=== PATIENT | female | born 1950 | race Caucasian/White ===

== ENCOUNTER → 2016-12-20 | Outpatient (CLI) | payer OTHER ==
[~2016-12-20] MED LIST: ALBU1AER9 INH; AMLO5TAB4 PO; ASPI-435 PO; DONE1TAB26 PO; FLUT0.0529 NAE; FLUT0.15 NAE; HYDR12.55 PO; LOSA100T65 PO; METF1000 PO; PRED50TA PO; PREG1CAP28 PO; ZOLP10TA6 PO
== END | disposition home or self-care (01) ==
LOC: C.RDSM 14:37
PROVIDERS: ATTEND Orthopaedic Surgery Sports Medicine
DX: R52 Pain, unspecified (principal)

== ENCOUNTER 2017-04-13 16:41 | Emergency (ER) | payer OTHER ==
[~2017-04-13] VITALS: Ht 175.3 cm; Wt 104.1 kg
[~2017-04-13 16:41] MED LIST changes: -DONE1TAB26 PO; -FLUT0.15 NAE; -PRED50TA PO
[2017-04-13 16:45] VITALS: TEMP 36.8; Ht 175.3 cm; Wt 104.1 kg
[2017-04-13] MEDS ORDERED: PERMETHRIN 5% CR 60 GM TUBE EXT STA (17:14)
--- NOTE | 2017-04-13 17:19 | EMERGENCY ROOM VISIT NOTE ---
History First contact with patient: 16:50 Chief Complaint: RASH Stated Complaint: RASH History of Present Illness The patient is a 67 year old female who presents to the Emergency Room via private vehicle with complaints of "rash". Much of the history was obtained via lance crewmember/mlrs sergeant for Citizen Of [place]. The patient states that 2 days ago, she was gardening, and was around plants and then noticed these red dots on her right leg, left abdominal waistline, right inner thigh. She states that these are very itchy. She notes that began on the legs. She denies any pain. She states that it is now spreading. She is tried Neosporin the provides minimal relief. She also notes that she visited someone's house, and a catch up on her and she is concerned she may have fleas. She denies any fevers, chest pain, shortness of breath, trouble breathing, throat swelling, pain, drainage, close contacts with similar symptoms. She denies any medicinal allergies. She takes medication for high blood pressure and diabetes. There've been no new medications. There've been no new changes in lifestyle. Review of Systems A complete 10-point Review of Systems was discussed with the patient, with pertinent positives and negatives listed in the History of Present Illness. All remaining Review of Systems questions can be considered negative unless otherwise specified. Past Medical/Surgical History Medical Problems: (1) Asthma (2) Depression (3) Diabetes mellitus (4) Hyperlipidemia (5) Hypertension Family History Patient lives at home with family. Social History Smoking Status: Never Smoker Alcohol Use: none Drug Use: none Marital Status: Housing Status: lives with family Occupation Status: disabled Current/Historical Medications Scheduled Amlodipine Besylate (Norvasc), 5 MG PO QAM Aspirin (Aspirin 81), 81 MG PO DAILY Donepezil Hydrochloride (Donepezil Hcl), 10 MG PO DAILY Fluticasone Propionate (Nasal) (Flonase Allergy Relief), 2 SPRAYS PATRICE BID Hydrochlorothiazide (Hydrochlorothiazide), 12.5 MG PO QAM Losartan Potassium (Cozaar), 100 MG PO DAILY Metformin Hcl (Glucophage), 1,000 MG PO BID Prednisone (Prednisone), 50 MG PO DAILY Pregabalin (Lyrica), 75 MG PO HS Scheduled PRN Albuterol (Proair Hfa), 1-2 PUFFS INH Q6 PRN for SOB/Wheezing Zolpidem Tartrate (Zolpidem Tartrate), 1 TAB PO HS PRN for Sleep Allergies Coded Allergies: Procaine (Verified Allergy, Unknown, UNKNOWN, 09/10/16) Physical Exam Vital Signs Date Time Temp Pulse Resp B/P Pulse Ox O2 Delivery O2 Flow Rate FiO2 04/13/17 17:48 66 153/77 95 04/13/17 16:45 36.8 73 18 180/82 97 Room Air Physical Exam VITAL SIGNS - Vital signs and nursing notes were reviewed. Afebrile, hypertensive at 180/82, nontachypneic cardiac and saturating well on room air at 97%. GENERAL -67-year-old female appearing her stated age who is in no acute distress. Communicates well with provider and answers questions appropriately. SKIN - Small raised papules that are erythematous and sub centimeter. HEAD - NC/AT. EYES -Sclera anicteric. Palpebral conjunctiva pink and moist with no injection noted. EARS - No deformities of external structures noted on gross examination bilaterally. NOSE - Midline and without cyanosis. No epistaxis or purulent drainage noted. Septum midline without deviation or septal hematoma noted. MOUTH/OROPHARYNX - Without perioral cyanosis. Buccal mucosa pink and moist and without leukoplakia. EXTREMITIES - No clubbing or peripheral cyanosis. No pretibial edema present. +5 /5 strength noted in UE/LE bilaterally. NEUROLOGIC - Cranial nerves II through XII grossly intact. Sensory intact to light touch throughout. PSYCH - Pt is very pleasant and interacts well with examiner. Medical Decision & Procedures Medications Administered Medications (Trade) Dose Ordered Sig/Leigh Ann Route Start Time Stop Time Status Last Admin Dose Admin Prednisone (PredniSONE TAB) 50 mg NOW STAT PO 04/13/17 17:14 04/13/17 17:16 DC 04/13/17 17:25 50 MG Permethrin (Elimite 5% Crm) 1 appln NOW STAT EXT 04/13/17 17:14 04/13/17 17:16 DC 04/13/17 17:14 1 APPLN Diphenhydramine HCl (Benadryl Cap) 50 mg NOW STAT PO 04/13/17 17:14 04/13/17 17:16 DC 04/13/17 17:25 50 MG Medical Decision Patient was seen and evaluated as above. She presents with a raised, papular- like rash. This is either contact of otitis secondary to recent gardening, scabies or flea bites. Patient does have a potential exposure to a friend's cat , and secondary itchiness could be scabies as well as its distribution however could also be contact dermatitis. The exact etiology at this time is unclear. An lance crewmember/mlrs sergeant was used throughout much of the examination and disposition. It appears that the best treatment for this patient will be Benadryl, prednisone followed by permethrin cream for any potential scabies. She was educated to wear white socks, and try to identify small little flecks than the fleas. She was instructed upon management of fleas. She was instructed upon management of the permethrin cream and scabies. She was also educated this was contact dermatitis. I believe the patient is stable for discharge at this time. She was also seen and evaluated by my attending. Please refer to his independent note regarding the patient's visit. Patient was discharged home in good condition. In evaluation treatment this patient following differential diagnoses entertained: Contact dermatitis, scabies, fleas, SJS, erythema migrans, herpes simplex, hives, among others. Impression Primary Impression: Contact dermatitis Additional Impression: Bites Departure Information Dispostion Home / Self-Care Condition GOOD Prescriptions Prednisone (Prednisone) 50 Mg Tab 50 MG PO DAILY for 4 Days, #4 TAB Prov: Quincy Islas PA-C 04/13/17 Referrals El Hernández M.D. (PCP) Patient Instructions My [facility] Additional Instructions You have been treated in the Emergency Department for irritation of your leg. You have been treated and monitored in the Emergency Department appropriately. The rash could be from a plant in the garden but also could be fleas or scabies. For the rash from a plant the benadryl and prednisone and will help. For fleas, wear white socks and look for small black flecks on your socks. If this is the case then your house needs to be treated for fleas. For scabies, the Permethrin cream will help. Cover body head to toe. Follow instructions. Thoroughly massage cream (30 g for average adult) from head to soles of feet; leave on for 8 to 14 hours before removing (shower or bath); for infants and the elderly, also apply on the hairline, neck, scalp, denominational, and forehead; may repeat if living mites are observed 14 days after first treatment; one application is generally curative. You should take Benadryl (diphenhydramine) 25-50 mg orally every 4-6 hours for the next 5-7 days. This medication is [id number] and you will NOT need a prescription to purchase this at your local pharmacy. You should continue taking the Benadryl for the COMPLETION of the 5-7 days. This is to prevent a rebound allergic reaction in the event that allergens are still present in your system. You have been prescribed Prednisone 50 mg to be taken orally once a day for the next 4 days. This is an anti-inflammatory medicine to be used to help minimize your symptoms. You should take the COMPLETE course of the medication. As with every Emergency Department visit, you should follow-up with your primary care provider in 2-3 days for reevaluation. Return to the Emergency Department if your current symptoms worsen despite treatment course outlined above, or if you develop any of the following symptoms : wheezing, tongue or face swelling, tightness in your throat, shortness of breath, or fainting. Please return to the emergency department with any new/concerning symptoms. Problem Qualifiers
[2017-04-13] MEDS ORDERED: PRED50TA PO (17:20)
[2017-04-13] MEDS ORDERED: DONE1TAB26 PO (17:36)
[2017-04-13] MEDS ORDERED: FLUT0.15 NAE (17:36)
[2017-04-13 17:48] VITALS: BP 153/77; PULSE 66; O2SAT 95
== END 2017-04-13 17:50 | disposition home or self-care (01) ==
LOC: C.EDB 16:42 → C.EDD 17:50
DX: L25.9 Unspecified contact dermatitis, unspecified cause (principal); W57.XXXA Bitten or stung by nonvenomous insect and other nonvenomous arthropods, initial encounter; J45.909 Unspecified asthma, uncomplicated; E11.9 Type 2 diabetes mellitus without complications; I10 Essential (primary) hypertension; Z79.82 Long term (current) use of aspirin; Z79.84 Long term (current) use of oral hypoglycemic drugs; Z79.899 Other long term (current) drug therapy

== ENCOUNTER → 2017-06-06 | Outpatient (CLI) | payer OTHER ==
[~2017-06-06] MED LIST changes: +DONE1TAB26 PO; -FLUT0.0529 NAE; +FLUT0.15 NAE
[2017-06-06 10:26] LABS: ESTIMATED AVERAGE GLUCOSE 146 mg/dl; HA1C FLAG Normal (Normal)
[2017-06-06 10:39] LABS: ALT/SGPT 23 U/L (12-78); AST/SGOT 13 U/L (15-37); BLOOD UREA NITROGEN 22 mg/dl (7-18); BUN/CREATININE RATIO 36.5 (10-20); CALCIUM 9.4 mg/dl (8.5-10.1); CARBON DIOXIDE 28 mmol/L (21-32); CHLORIDE 108 mmol/L (98-107); GLUCOSE 125 mg/dl (70-99); POTASSIUM 4.2 mmol/L (3.5-5.1); SODIUM 142 mmol/L (136-145)
[2017-06-06 10:50] LABS: CHOLESTEROL 164 mg/dl (0-200); CHOLESTEROL/HDL RATIO 3.8; HDL CHOLESTEROL 43 mg/dl; LDL CHOLESTEROL CALCULATED 101 mg/dl; TRIGLYCERIDES 99 mg/dl (0-150); VERY LOW DENSITY LIPOPROT CALC 20 mg/dl
== END | disposition home or self-care (01) ==
LOC: C.LAB1850 09:26
PROVIDERS: ATTEND Internal Medicine
DX: E03.9 Hypothyroidism, unspecified (principal); E11.9 Type 2 diabetes mellitus without complications; G62.9 Polyneuropathy, unspecified; E11.42 Type 2 diabetes mellitus with diabetic polyneuropathy

== ENCOUNTER → 2017-10-06 | Outpatient (CLI) | payer OTHER ==
[2017-10-06 16:47] LABS: BLOOD UREA NITROGEN 17 mg/dl (7-18); BUN/CREATININE RATIO 23.1 (10-20); CARBON DIOXIDE 25 mmol/L (21-32); CHLORIDE 107 mmol/L (98-107); CREATININE 0.71 mg/dl (0.60-1.20); GLUCOSE 97 mg/dl (70-99); SODIUM 142 mmol/L (136-145)
[2017-10-06 16:49] LABS: CREATININE RANDOM URINE 60.2 mg/dl
[2017-10-07 06:11] LABS: ESTIMATED AVERAGE GLUCOSE 143 mg/dl; HA1C FLAG Normal (Normal)
== END | disposition home or self-care (01) ==
LOC: C.LAB1850 14:43
PROVIDERS: ATTEND Internal Medicine
DX: E03.9 Hypothyroidism, unspecified (principal); E11.9 Type 2 diabetes mellitus without complications

== ENCOUNTER → 2017-12-25 | Outpatient (CLI) | payer OTHER | END | disposition home or self-care (01) | LOC: C.RDSM 08:00 | PROVIDERS: ATTEND Orthopaedic Surgery Sports Medicine | DX: M17.0 Bilateral primary osteoarthritis of knee (principal) ==

== ENCOUNTER 2018-02-24 13:02 | Emergency (ER) | payer OTHER ==
[~2018-02-24] VITALS: Ht 165.1 cm; Wt 104.9 kg
[2018-02-24 13:05] VITALS: TEMP 36.8
[2018-02-24 14:39] VITALS: O2SAT 96
[2018-02-24 14:48] LABS: BASO % 0.4 %; BASO ABS # 0.03 K/uL (0-0.2); EOS % 1.9 %; EOS ABS # 0.14 K/uL (0-0.5); HEMATOCRIT 41.4 % (37-47); HEMOGLOBIN 13.6 g/dL (12.0-16.0); IG# 0.01 K/uL (0.00-0.02); LYMPH % 37.9 %; LYMPH ABS # 2.81 K/uL (1.2-3.4); MEAN CELL VOLUME 87.2 fL (80-100); MEAN CORPUSCULAR HEMOGLOBIN 28.6 pg (25-34); MEAN CORPUSCULAR HGB CONC 32.9 g/dl (32-36); MEAN PLATELET VOLUME 11.9 fL (7.4-10.4); MONO ABS # 0.52 K/uL (0.11-0.59); NEUT % 52.7 %; PLATELET COUNT 198 K/uL (130-400); WHITE BLOOD COUNT 7.41 K/uL (4.8-10.8)
[2018-02-24 14:54] LABS: PTT PATIENT 22.9 SECONDS (21.0-31.0)
--- NOTE | 2018-02-24 14:55 | DIAGNOSTIC IMAGING REPORT ---
CHEST ONE VIEW PORTABLE CLINICAL HISTORY: EVALUATE WEAKNESS COMPARISON STUDY: Chest radiograph August. FINDINGS: Patient is rotated. No pneumothorax or pleural effusion is noted. There is no evidence for pulmonary edema. No consolidation is identified to suggest pneumonia. Mild cardiomegaly is unchanged. IMPRESSION: No acute cardiopulmonary findings. No change in appearance of the chest. Electronically signed by: Gee Tran M.D. 02/24/2018 2:54 PM Dictated Date/Time: 02/24/2018 2:53 PM
[2018-02-24 15:06] LABS: ALBUMIN 3.3 gm/dl (3.4-5.0); ALT/SGPT 32 U/L (12-78); BLOOD UREA NITROGEN 20 mg/dl (7-18); CALCIUM 8.6 mg/dl (8.5-10.1); CARBON DIOXIDE 29 mmol/L (21-32); CREATININE 0.71 mg/dl (0.60-1.20); GLUCOSE 92 mg/dl (70-99); POTASSIUM 3.8 mmol/L (3.5-5.1); SODIUM 140 mmol/L (136-145)
[2018-02-24 15:17] LABS: ALKALINE PHOSPHATASE 71 U/L (45-117); AST/SGOT 18 U/L (15-37); PHOSPHORUS 3.2 mg/dl (2.5-4.9); TOTAL PROTEIN 6.9 gm/dl (6.4-8.2)
[2018-02-24] MEDS ORDERED: CTP/1 PO ×2 (15:17→16:20)
--- NOTE | 2018-02-24 15:19 | DIAGNOSTIC IMAGING REPORT ---
HEAD WITHOUT CONTRAST (CT) CLINICAL HISTORY: 68 years-old Female presenting with EVALUATE WEAKNESS. TECHNIQUE: Multidetector CT imaging of the head was performed without the use of intravenous contrast. IV contrast: None. A dose lowering technique was used consistent with the principles of ALARA (as low as reasonably achievable). COMPARISON: 06/23/2008. CT DOSE (mGy.cm): The estimated cumulative dose is 537.48 mGy.cm. FINDINGS: Automotive Lube Technician topogram: Unremarkable. Proportional ventricular and sulcal prominence, likely age-related parenchymal volume loss. Brain parenchyma normal in appearance with preserved barlow-white differentiation. No mass effect or midline shift. No hemorrhage or acute territorial infarct. No extra-axial fluid collection. Paranasal sinuses and mastoid air cells clear. Calvarium intact. IMPRESSION: 1. No acute intracranial abnormality. Electronically signed by: Jamar Seymour M.D. 02/24/2018 3:17 PM Dictated Date/Time: 02/24/2018 3:15 PM
[2018-02-24] MEDS ORDERED: CLON0.1T12 PO (16:21)
--- NOTE | 2018-02-24 16:22 | EMERGENCY ROOM VISIT NOTE ---
History Report prepared by Tejal: Ihsan Unger Under the Supervision of: Dr. Elías Rosado M.D. First contact with patient: 14:10 Chief Complaint: DIZZY Stated Complaint: DIZZINESS AND NAUSEA Nursing Triage Summary: Dizzy, headache and vomiting. History of Present Illness The patient is a 68 year old white female with a past medical history of HLD, HTN, asthma, depression, and diabetes who presents to the ED with a cc of constant dizziness beginning a few days ago. Positive left sided headaches and nausea. Her headaches began three days ago. Currently has no headache. Patient reports vomiting once two days ago. She is able to eat without difficulty. Patient was diagnosed with HTN last month and feels this could be related to her symptoms. She has been taking her medication as instructed. She had her dose increased recently. Source of History: patient Onset: A few days ago Quality: other (nausea) Timing: constant Associated Symptoms: + headache (left sided, x3 days, currently resolved), + nausea, + vomiting (once, two days ago) Review of Systems See HPI for pertinent positives and negatives. A total of ten systems were reviewed and were otherwise negative. Past Medical & Surgical Medical Problems: (1) Asthma (2) Depression (3) Diabetes mellitus (4) Hyperlipidemia (5) Hypertension Family History No pertinent family history stated. Social History Smoking Status: Never Smoker Alcohol Use: none Drug Use: none Marital Status: Housing Status: lives with family Occupation Status: disabled Current/Historical Medications Scheduled Amlodipine Besylate (Norvasc), 5 MG PO QAM Aspirin (Aspirin 81), 81 MG PO DAILY Donepezil Hydrochloride (Donepezil Hcl), 10 MG PO DAILY Fluticasone Propionate (Nasal) (Flonase Allergy Relief), 2 SPRAYS PATRICE BID Hydrochlorothiazide (Hydrochlorothiazide), 12.5 MG PO QAM Losartan Potassium (Cozaar), 100 MG PO DAILY Metformin Hcl (Glucophage), 1,000 MG PO BID Pregabalin (Lyrica), 75 MG PO HS Scheduled PRN Albuterol (Proair Hfa), 1-2 PUFFS INH Q6 PRN for SOB/Wheezing Clonidine Hcl (Catapres), 0.1 MG PO DAILY PRN for Blood Pressure Clonidine Hcl (Catapres), 1 TAB PO QD PRN for Hypertension Clonidine Hcl (Catapres), 1 TAB PO QD PRN for Hypertension Zolpidem Tartrate (Zolpidem Tartrate), 1 TAB PO HS PRN for Sleep Allergies Coded Allergies: Procaine (Verified Allergy, Unknown, UNKNOWN, 02/24/18) Physical Exam Vital Signs Date Time Temp Pulse Resp B/P (MAP) Pulse Ox O2 Delivery O2 Flow Rate FiO2 02/24/18 15:23 64 18 153/77 95 Room Air 02/24/18 15:07 61 02/24/18 14:44 204/83 02/24/18 14:39 96 Room Air 02/24/18 13:05 36.8 78 20 201/106 96 Room Air Physical Exam GENERAL: Awake, alert, well-appearing, NAD. Wearing glasses. HENT: Normocephalic, atraumatic. No reproducible head pain. EYES: Normal conjunctiva. Sclera non-icteric. NECK: Supple. No nuchal rigidity. FROM. RESPIRATORY: CTAB, no rhonchi, wheezing, crackles CARDIAC: RRR, no MRG ABDOMEN: Soft, NTND, BS+ MSK: No chest wall TTP, no LE edema NEURO: CN 2-12 intact, 5/5 upper and lower extremity strength, no dysmetria, no drift, good finger to nose, no sensory deficits. Finger count grossly normal. PERRL. SKIN: No rash or jaundice noted. Medical Decision & Procedures ER Provider Diagnostic Interpretation: Radiology results as stated below per my review and radiologist interpretation: HEAD WITHOUT CONTRAST (CT) FINDINGS: Folder Taper Operator topogram: Unremarkable. Proportional ventricular and sulcal prominence, likely age-related parenchymal volume loss. Brain parenchyma normal in appearance with preserved barlow-white differentiation. No mass effect or midline shift. No hemorrhage or acute territorial infarct. No extra-axial fluid collection. Paranasal sinuses and mastoid air cells clear. Calvarium intact. IMPRESSION: 1. No acute intracranial abnormality. Electronically signed by: Jamar Seymour M.D. 02/24/2018 3:17 PM CHEST ONE VIEW PORTABLE FINDINGS: Patient is rotated. No pneumothorax or pleural effusion is noted. There is no evidence for pulmonary edema. No consolidation is identified to suggest pneumonia. Mild cardiomegaly is unchanged. IMPRESSION: No acute cardiopulmonary findings. No change in appearance of the chest. Electronically signed by: Gee Tran M.D. 02/24/2018 2:54 PM Laboratory Results 02/24/18 14:30 Red Blood Count 4.75, Mean Corpuscular Volume 87.2, Mean Corpuscular Hemoglobin 28.6, Mean Corpuscular Hemoglobin Concent 32.9, Mean Platelet Volume 11.9, Neutrophils (%) (Auto) 52.7, Lymphocytes (%) (Auto) 37.9, Monocytes (%) (Auto) 7.0, Eosinophils (%) (Auto) 1.9, Basophils (%) (Auto) 0.4, Neutrophils # (Auto) 3.90, Lymphocytes # (Auto) 2.81, Monocytes # (Auto) 0.52, Eosinophils # (Auto) 0.14, Basophils # (Auto) 0.03 02/24/18 14:30 Test 02/24/18 14:30 02/24/18 15:45 White Blood Count 7.41 K/uL (4.8-10.8) Red Blood Count 4.75 M/uL (4.2-5.4) Hemoglobin 13.6 g/dL (12.0-16.0) Hematocrit 41.4 % (37-47) Mean Corpuscular Volume 87.2 fL (80-100) Mean Corpuscular Hemoglobin 28.6 pg (25-34) Mean Corpuscular Hemoglobin Concent 32.9 g/dl (32-36) Platelet Count 198 K/uL (130-400) Mean Platelet Volume 11.9 fL (7.4-10.4) Neutrophils (%) (Auto) 52.7 % Lymphocytes (%) (Auto) 37.9 % Monocytes (%) (Auto) 7.0 % Eosinophils (%) (Auto) 1.9 % Basophils (%) (Auto) 0.4 % Neutrophils # (Auto) 3.90 K/uL (1.4-6.5) Lymphocytes # (Auto) 2.81 K/uL (1.2-3.4) Monocytes # (Auto) 0.52 K/uL (0.11-0.59) Eosinophils # (Auto) 0.14 K/uL (0-0.5) Basophils # (Auto) 0.03 K/uL (0-0.2) RDW Standard Deviation 45.0 fL (36.4-46.3) RDW Coefficient of Variation 14.0 % (11.5-14.5) Immature Granulocyte % (Auto) 0.1 % Immature Granulocyte # (Auto) 0.01 K/uL (0.00-0.02) Prothrombin Time 10.8 SECONDS (9.0-12.0) Prothromb Time International Ratio 1.0 (0.9-1.1) Activated Partial Thromboplast Time 22.9 SECONDS (21.0-31.0) Partial Thromboplastin Ratio 0.9 Anion Gap 5.0 mmol/L (3-11) Est Creatinine Clear Calc Drug Dose 89.9 ml/min Estimated GFR () 100.7 Estimated GFR (Non- 86.9 BUN/Creatinine Ratio 27.9 (10-20) Calcium Level 8.6 mg/dl (8.5-10.1) Phosphorus Level 3.2 mg/dl (2.5-4.9) Magnesium Level 1.8 mg/dl (1.8-2.4) Total Bilirubin 0.6 mg/dl (0.2-1) Direct Bilirubin 0.2 mg/dl (0-0.2) Aspartate Amino Transf (AST/SGOT) 18 U/L (15-37) Alanine Aminotransferase (ALT/SGPT) 32 U/L (12-78) Alkaline Phosphatase 71 U/L (45-117) Troponin I < 0.015 ng/ml (0-0.045) Pro-B-Type Natriuretic Peptide 149 pg/ml (0-900) Total Protein 6.9 gm/dl (6.4-8.2) Albumin 3.3 gm/dl (3.4-5.0) Thyroid Stimulating Hormone (TSH) 1.730 uIu/ml (0.300-4.500) Urine Color YELLOW Urine Appearance CLEAR (CLEAR) Urine pH 5.5 (4.5-7.5) Urine Specific Ferdinand 1.019 (1.000-1.030) Urine Protein NEG (NEG) Urine Glucose (UA) NEG (NEG) Urine Ketones NEG (NEG) Urine Occult Blood NEG (NEG) Urine Nitrite NEG (NEG) Urine Bilirubin NEG (NEG) Urine Urobilinogen NEG (NEG) Urine Leukocyte Esterase SMALL (NEG) Urine WBC (Auto) 1-5 /hpf (0-5) Urine RBC (Auto) 0-4 /hpf (0-4) Urine Hyaline Casts (Auto) 1-5 /lpf (0-5) Urine Epithelial Cells (Auto) 10-20 /lpf (0-5) Urine Bacteria (Auto) NEG (NEG) Laboratory results reviewed by me ECG Per My Interpretation Indication: other (dizzy) Rate (beats per minute): 60 Rhythm: normal sinus Findings: Q waves (anterior. Lead 3. ), other (Normal intervals. Normal axis. ) Comparison ECG Date: Oct 17, 2013 Change: no significant change ED Course 1413: The patient was evaluated in room A2. A complete history and physical exam was performed. 1426: I reevaluated the patient. Discussed results and discharge instructions: she verbalized understanding and agreement. The patient is ready for discharge. Medical Decision Nursing notes reviewed. Ancillary studies and prior records reviewed. The patient is a 68 year old white female with a past medical history of HLD, HTN, asthma, depression, and diabetes who presents to the ED with a cc of constant dizziness beginning a few days ago. Positive headaches and nausea. Differential diagnosis: Etiologies such as benign positional vertigo, dehydration, hypovolemia, anemia, tumor, infection, hypoglycemia, electrolyte abnormalities, cardiac sources, intracerebral event, toxicologic, neurologic, as well as others were entertained. Patient was seen and evaluated the bedside. Patient did relate some dizziness that have been ongoing for a few days prior. Patient did have headaches but does not have them presently. Patient describes them as being somewhat sharp and needlelike in the posterior aspect. Patient denies any recent trauma. She has a nonfocal neurologic exam patient does not have any visual changes. Patient did have blood work completed, CT brain, EKG, troponin, chest x-ray. Patient's blood work and scans were otherwise unremarkable. The patient did describe that the patient had taken a recent trip to [place] with a weathered warm and then upon return here she had noticed that she had some increased nasal drainage that has been clear. Patient does use Flonase. This may be somewhat attributable to some of her mild headache lightheadedness given the possible change in elevation in weather. Patient was also told she could take Zyrtec as well as a saline nasal spray. Patient did have some hypertension which may somewhat be related but the hypertension resolved without being treated. The patient was given a prescription for clonidine which she is supposed to take as needed if her blood pressures above a systolic of 170. Patient states that she has been compliant with her medications. I believe the patient may follow-up as an outpatient. She was told return if she has any worsening symptoms, slurred speech, numbness, weakness, or tingling. The patient and family member or and agreeable with the plan of care. Patient was given strict follow-up, discharge, and return precautions. All questions were answered. Patient was deemed suitable for outpatient follow-up at this time. Patient agreed with the plan of care and was safely discharged home. Of note thereafter I noticed I had sent a duplicate of her clonidine to the pharmacy. I did call the pharmacy and asked that the redundant prescription be canceled, which they stated they would do. Medication Reconcilliation Current Medication List: was personally reviewed by me Blood Pressure Screening Patient's blood pressure: Elevated blood pressure Blood pressure disposition: Referred to PCP Impression Primary Impression: Hypertension Additional Impressions: Dizziness Congestion of nasal sinus Scribe Attestation The scribe's documentation has been prepared under my direction and personally reviewed by me in its entirety. I confirm that the note above accurately reflects all work, treatment, procedures, and medical decision making performed by me. Departure Information Dispostion Home / Self-Care Prescriptions Clonidine Hcl (CATAPRES) 0.1 Mg Tab 1 TAB PO QD Y for Hypertension for 30 Days, #30 TAB 2 Refills Prov: Elías Rosado M.D. 02/24/18 Referrals El Hernández M.D. (PCP) Patient Instructions Allergies Nasal, Hypertension [place], [facility] Additional Instructions Please return to the emergency department if you have worsening or recurrent symptoms not amenable to at-home treatment. Please call for a follow-up appointment with her primary care physician. Please take your medications as prescribed. If you have other concerns and/or complaints please feel free to also call your primary care physician's office or return the ED for further evaluation, management, and treatment. You were found to have an elevated blood pressure today (>120 sytolic or >90 diastolic). Per medicare guidelines, you need to follow up with this blood pressure screening with your Primary Care Physician (PCP). For a new PCP call [phone]. Take your medications as prescribed. You may use a saline nasal spray and or Zyrtec to help with nasal congestion. You may also continue to use your Flonase. Please avoid any medications with Sudafed or phenylephrine as they may raise her blood pressure. You have been examined and treated today on an emergency basis only. This is not a substitute for, or an effort to provide, complete comprehensive medical care. It is impossible to recognize and treat all injuries or illnesses in a single emergency department visit. It is therefore important that you follow up closely with [facility], your PCP, and/or your specialist(s). Call as soon as possible for an appointment. Thank you for your time and consideration. I look forward to speaking with you again soon. Please don't hesitate to call us if you have any questions. Problem Qualifiers Primary Impression: Hypertension Hypertension type: unspecified Qualified Codes: I10 - Essential (primary) hypertension
[2018-02-24 17:20] VITALS: BP 171/67; PULSE 63; O2SAT 97
== END 2018-02-24 17:20 | disposition home or self-care (01) ==
LOC: C.EDB 13:04 → C.EDA 17:20
DX: I10 Essential (primary) hypertension (principal); R09.81 Nasal congestion; E78.5 Hyperlipidemia, unspecified; J45.909 Unspecified asthma, uncomplicated; F32.9 Major depressive disorder, single episode, unspecified; E11.9 Type 2 diabetes mellitus without complications; Z79.82 Long term (current) use of aspirin; Z79.84 Long term (current) use of oral hypoglycemic drugs; Z79.899 Other long term (current) drug therapy; Z88.4 Allergy status to anesthetic agent

== ENCOUNTER 2024-07-15 12:03 | Inpatient (IN) ==
[2024-07-15 13:16] LABS: Basophils # (auto) 0.05 K/uL (0.00-0.20); Basophils % (auto) 0.4 %; Eosinophils # (auto) 0.09 K/uL (0.00-0.50); Eosinophils % (auto) 0.8 %; Hematocrit (blood only) 41.2 % (37.0-47.0); Hemoglobin 13.9 g/dl (12.0-16.0); Immature Granulocytes # (auto) 0.06 K/uL (0.01-0.20); Immature Granulocytes % (auto) 0.5 %; Lymphocytes # (auto) 2.89 K/uL (1.20-3.40); Lymphocytes % (auto) 24.1 %; Mean Corpuscular Hemoglobin 28.5 pg (25.0-34.0); Mean Corpuscular Hgb Conc 33.7 g/dL (32.0-36.0); Mean Corpuscular Volume 84.6 fL (80.0-100.0); Mean Platelet Volume 11.8 fL (9.4-12.4); Monocytes # (auto) 0.75 K/uL (0.11-0.59); Monocytes % (auto) 6.3 %; Neutrophils # (auto) 8.13 K/uL (1.40-6.50); Neutrophils % (auto) 67.9 %; Platelet Count 248 K/uL (130-400); RDW Standard Deviation 43.8 fL (36.4-46.3); Red Blood Count 4.87 M/uL (4.20-5.40); White Blood Count 11.97 K/ul (4.8-10.8)
[2024-07-15 13:35] LABS: Albumin Globulin Ratio 1.3 (0.9-2); Albumin Level 4.1 gm/dl (3.4-5.0); BUN Creatinine Ratio 24.4 (10-20); Bilirubin,Total 0.7 mg/dl (0.2-1.0); Calcium 9.3 mg/dl (8.6-10.3); Creatinine Clr Calc Pharmacy 72.9 ml/min; Est GFR (African American) 86.2 ml/min; Est GFR (Non-African American) 74.4 ml/min; Globulin 3.1 gm/dl (2.5-4.0); Potassium 4.3 mmol/L (3.5-5.1); Total Protein 7.2 gm/dl (6.0-8.3)
[2024-07-15 13:40] LABS: Partial Thromboplastin Ratio 0.9; Partial Thromboplastin Time 23 Seconds (21-31)
--- NOTE | 2024-07-15 13:47 | XRay Report ---
XR chest 1V not portable CLINICAL HISTORY: Chest pain, nonspecific COMPARISON STUDY: Chest radiograph June 20, 2023. Chest CT September 08, 2007. FINDINGS: Lung volumes are normal. Lungs are clear. There is no pneumothorax or pleural effusion. The re is mild cardiomegaly. Mediastinal contours are normal. There is no evidence for pulmonary edema. IMPRESSION: No acute cardiopulmonary findings. ACT 112: Negative or not required by law. Electronically signed by: Gee Tran M.D. 07/15/2024 1:45 PM
[2024-07-15 13:54] LABS: Troponin I High Sensitivity 382.1 pg/ml (0-14)
[2024-07-15 14:32] LABS: Adenovirus PCR Not Detected (NotDetected); Bordetella parapertussis PCR Not Detected (NotDetected); Bordetella pertussis PCR Not Detected (NotDetected); Chlamydia pneumoniae PCR Not Detected (NotDetected); Coronavirus 229E PCR Not Detected (NotDetected); Coronavirus CoV-2 (COVID19)PCR Not Detected (NotDetected); Coronavirus HKU1 PCR Not Detected (NotDetected); Coronavirus NL63 PCR Not Detected (NotDetected); Coronavirus OC43PCR Not Detected (NotDetected); Human Metapneumovirus PCR Not Detected (NotDetected); Influenza A PCR Not Detected (NotDetected); Influenza B PCR Not Detected (NotDetected); Mycoplasma pneumoniae PCR Not Detected (NotDetected); Parainfluenza Virus 1 PCR Not Detected (NotDetected); Parainfluenza Virus 2 PCR Not Detected (NotDetected); Parainfluenza Virus 3 PCR Not Detected (NotDetected); Parainfluenza Virus 4 PCR Not Detected (NotDetected); Respiratory Syncytial VirusPCR Not Detected (NotDetected); Rhinovirus/Enterovirus PCR Not Detected (NotDetected)
[2024-07-15] MEDS: ASPIRIN CHEW 324 MG PO STA (14:47)
--- NOTE | 2024-07-15 14:52 | Emergency Department Note ---
Impression & Plan Chest pain, Non-ST elevation GA (NSTEMI) ED Provider Note HISTORY OF PRESENT ILLNESS: Patient is a 74-year-old female presenting with chest pain and shortness of breath. Patient reports for the last 2 weeks has been having shortness of breath and a cough. She was started on Z-Arjun, inhaler and methylprednisone a week ago at her primary care provider's office. She states that early this morning at 4 AM, she developed substernal chest pain and started being very short of breath and she thought she was having an asthma attack. She complains of pain in the substernal region with radiation into her back. She states the pain is diffusely across her chest at this time. Denies ever having any stents in her heart. She is not on any anticoagulation. Denies any DVT or PE history. History is obtained secondary to a video [place] tombstone carver. Patient denies any abdominal pain, nausea or vomiting. ROS: as above PHYSICAL EXAM: Constitutional: Patient appears in no acute distress. HENT: Head: Normocephalic and atraumatic. Eyes: EOMI, PERRge. Mouth/Throat: Mucous membranes moist. Neck: Trachea midline. Neck supple. Cardiovascular: RRR, No murmurs, rubs or gallops. Intact distal pulses. Pulmonary/Chest: No respiratory distress. Breath sounds clear and equal bilaterally. No wheezes or rales. Abdominal: Abdomen soft, no tenderness, rebound or guarding. Musculoskeletal: No edema, tenderness or deformity noted. Skin: Warm and dry. No rash, erythema, pallor or cyanosis Psychiatric: Appropriate mood and affect for situation. Neurological: Alert and keenly responsive. CN II-XII grossly intact, moving all extremities equally and fully. MDM: - Vitals signs showed hypertension. - History obtained via patient via tombstone carver. History as above. - Chronic conditions affecting care: GERD; hypothyroidism; DM-2; HTN; HLD; asthma - Differential diagnoses include, but are not limited to: Acute coronary syndrome; pulmonary embolism; dissection; tension pneumothorax; esophageal rupture; pneumonia - Order placed for continuous cardiac monitoring. At this time, monitor showed rate of 60 bpm with normal sinus rhythm, per my interpretation. - External medical records reviewed. Primary care visit note dated 07/07/2024 was reviewed. Patient was diagnosed bronchitis and started on Z-Arjun and steroids and was instructed on using expectorant such as Mucinex. - EKG interpreted by myself showed normal sinus rhythm. Rate 66 bpm. QT 406. No acute ischemic changes. - Laboratory workup interpreted by myself showed slight leukocytosis WBC (11.97); normal PT/INR; stable electrolytes; elevated glucose (141); elevated troponin (382.1) - CXR negative for pneumonia, per my interpretation - Viral respiratory panel negative - Patient given 324 mg PO aspirin in ER. - Discussion was had with trimming caser about patient's case and need for admission - Hospitalist, Dr. Rudolph, consulted for admission - Patient admitted to [facility] for further evaluation and management. I have personally spent 38 minutes of critical care time in the direct management of this patient. This includes bedside care, interpretation of diagnostic studies, and testing, discussion with consultants, patient, and family members, and other required patient management activities. This 38 minutes is in excess of all separately billable procedures. ASSESSMENT AND PLAN: Diagnosis: chest pain; NSTEMI Plan: admit Past Med/Surg History Problem List (Updated 07/15/24 @ 14:54 by Patrizia Flower MD) Non-ST elevation GA (NSTEMI) (Acute) Chest pain (Acute) Bilateral sciatica Lumbar radiculopathy Lower back pain Mild cognitive impairment with memory loss Vitamin D deficiency Left knee pain Hypomagnesemia Early satiety Current use of proton pump inhibitor Constipation GERD (gastroesophageal reflux disease) Leg cramps Recent skin changes Acute back pain Gastritis Abdominal pain Encounter for pre-operative examination Leg edema, left (Acute) Mixed incontinence urge and stress (Acute) Lumbar spinal stenosis (Acute) Hypothyroidism (Acute) pt denies Itching History of memory loss Flank pain Right-sided chest wall pain Right upper quadrant abdominal pain History of COVID-19 (Acute) diagnosed 03/2021--no issues now Mild cognitive impairment (Chronic) Diabetic peripheral neuropathy associated with type 2 diabetes mellitus (Chronic) Anxiety disorder (Acute) Polyneuropathy (Acute) Depression (Chronic) Asthma (Chronic) inhaler prn Hypertension (Chronic) Hyperlipidemia (Chronic) Medical History Osteoarthritis Diabetes mellitus, type 2 Surgical History Status post hardware removal History of open reduction and internal fixation (ORIF) procedure History of colonoscopy History of left cataract extraction History of total abdominal hysterectomy and bilateral salpingo-oophorectomy History of appendectomy Family History Mother Breast cancer Unknown Breast cancer Father Prostate cancer Other No family history of adverse response to anesthesia Denies family history of Ovarian cancer Myocardial infarction Colorectal cancer Social History Smoking Status: Never smoker Second Hand Exposure: No; Do You Dip or Chew Tobacco: No; Hx Alcohol Use: No Hx Substance Use: No Preferred Language: Kitt[place] Communication Ability: Effective Communication Ability Comment: will need an bus matron Communication Tools: IPad Visual Impairment: No Limitations Hearing Ability: Normal Traffic Law Attorney Required: Yes Beliefs That Will Affect Care: None marital status: / Current Living Situation: Alone current occupational status: retired Feels Safe at Home: Yes Childhood Exposure to Second-Hand Smoke: No Dental Care, Regularly: Yes Physical Activity Frequency: Does not Exercise Seatbelt Use: always Sunscreen Use: No Assistive Devices: Glasses Allergies Allergies Allergy/AdvReac Type Severity Reaction Status Date / Time procaine Allergy Unknown UNKNOWN Verified 07/07/24 10:44 Home Meds Home Medications Medication Instructions Recorded Confirmed coenzyme Q10 100 mg capsule 100 mg PO QAM 07/02/21 07/07/24 (CoQ-10) vitamin A 2,400 mcg capsule 2,400 mcg PO DAILY 10/21/22 07/07/24 biotin 10,000 mcg capsule 10,000 mcg PO DAILY 02/26/23 07/07/24 omega-3s 300 [id number]-mis-other 1 cap PO DAILY 03/19/23 07/07/24 [id number] oil 1,000 mg capsule ([place]-3 Fish Oil) Previous Rx's Medication Instructions Recorded meclizine 25 mg tablet 25 mg PO TID PRN dizziness #20 tabs 08/04/23 furosemide 20 mg tablet (Lasix) 20 mg PO DAILY PRN edema #30 tabs 10/28/23 amlodipine 10 mg-olmesartan 40 mg 1 tab PO DAILY #100 tabs 12/02/23 tablet magnesium chloride 64 mg 64 mg PO DAILY #90 tabs 01/01/24 (magnesium chloride) tablet,delayed release (Mag 64) lancets 33 gauge #100 ea 01/23/24 clonidine HCl 0.1 mg tablet 0.1 mg PO DAILY PRN Hypertension 02/26/24 #30 tabs pantoprazole 40 mg tablet,delayed See Rx Instructions .Route 03/15/24 release .COMPLEX #180 tabs amlodipine 5 mg tablet 5 mg PO BID PRN hypertension #60 04/06/24 tabs metformin 1,000 mg tablet 1,000 mg PO BID #180 tabs 04/30/24 blood sugar diagnostic (OneTouch #100 ea 05/31/24 Verio test strips) blood-glucose meter #1 ea 05/31/24 cholecalciferol (vitamin D3) 1,250 50,000 unit PO .ONCE WEEKLY #12 05/31/24 mcg (50,000 unit) capsule caps azithromycin 250 mg tablet See Rx Instructions PO .COMPLEX #6 07/07/24 tabs methylprednisolone 4 mg tablets in 4 mg PO DAILY #21 ea 07/07/24 a dose pack (Medrol (Arjun)) albuterol sulfate 90 mcg/actuation 1 inh inhalation QID PRN shortness 07/14/24 aerosol inhaler of breath or wheezing #6.7 grams Results & Data (ED) Vital Signs Vital Signs - 24 hr 07/15/24 12:26 07/15/24 12:26 07/15/24 14:28 Temperature 36.8 C Temperature Source Temporal Artery Scan Pulse Rate 68 Pulse Rate from SpO2 Sensor Respiratory Rate 17 Respiratory Effort / Characteristics Non-Labored Spontaneous Non-Labored Spontaneous Respiratory Depth Normal Normal Respiratory Pattern Regular Regular Blood Pressure 161/81 H 185/120 H Blood Pressure Mean 107 125 Pulse Oximetry 96 Oxygen Delivery Method Room Air Sepsis Recent Fever Within 48 Hours No Sepsis New/Unexplained Change in Mental Status No Sepsis Action Taken by Nursing No Action Required 07/15/24 14:30 07/15/24 14:31 Temperature Temperature Source Pulse Rate 59 L 57 L Pulse Rate from SpO2 Sensor 59 L Respiratory Rate 20 Respiratory Effort / Characteristics Respiratory Depth Respiratory Pattern Blood Pressure Blood Pressure Mean Pulse Oximetry 95 Oxygen Delivery Method Sepsis Recent Fever Within 48 Hours Sepsis New/Unexplained Change in Mental Status Sepsis Action Taken by Nursing Laboratory Data 07/15/24 12:44 07/15/24 12:44 Lab Results 07/15/24 Range/Units 12:44 WBC 11.97 H (4.8-10.8) K/ul RBC 4.87 (4.20-5.40) M/uL Hgb 13.9 (12.0-16.0) g/dl Hct 41.2 (37.0-47.0) % MCV 84.6 (80.0-100.0) fL MCH 28.5 (25.0-34.0) pg MCHC 33.7 (32.0-36.0) g/dL RDW Std Deviation 43.8 (36.4-46.3) fL RDW Coeff of Roxanne 14.0 (11.5-14.5) % Plt Count 248 (130-400) K/uL MPV 11.8 (9.4-12.4) fL Immature Gran % (Auto) 0.5 % Neut % (Auto) 67.9 % Lymph % (Auto) 24.1 % Henry % (Auto) 6.3 % Eos % (Auto) 0.8 % Baso % (Auto) 0.4 % Neut # (Auto) 8.13 H (1.40-6.50) K/uL Lymph # (Auto) 2.89 (1.20-3.40) K/uL Henry # (Auto) 0.75 H (0.11-0.59) K/uL Eos # (Auto) 0.09 (0.00-0.50) K/uL Baso # (Auto) 0.05 (0.00-0.20) K/uL Immature Gran # (Auto) 0.06 (0.01-0.20) K/uL PT 11.0 (9.0-12.0) Seconds INR 1.0 (0.9-1.1) APTT 23 (21-31) Seconds PTT Ratio 0.9 Sodium 140 (136-145) mmol/L Potassium 4.3 (3.5-5.1) mmol/L Chloride 103 (98-107) mmol/L Carbon Dioxide 29 (21-32) mmol/L Anion Gap 8 (3-11) BUN 19 (6-23) mg/dl Creatinine 0.78 (0.6-1.2) mg/dl Est Cr Clr Drug Dosing 72.9 ml/min Est GFR ( Amer) 86.2 ml/min Est GFR (Non-Af Amer) 74.4 ml/min BUN/Creatinine Ratio 24.4 H (10-20) Glucose 141 H (70-99(Fasting)) mg/dl Calcium 9.3 (8.6-10.3) mg/dl Total Bilirubin 0.7 (0.2-1.0) mg/dl AST 28 (13-39) U/L ALT 38 (7-52) U/L Alkaline Phosphatase 79 (34-104) U/L Troponin I High Sens 382.1 H* (0-14) pg/ml Total Protein 7.2 (6.0-8.3) gm/dl Albumin 4.1 (3.4-5.0) gm/dl Globulin 3.1 (2.5-4.0) gm/dl Albumin/Globulin Ratio 1.3 (0.9-2) Adenovirus (PCR) Not Detected (NotDetected) B. pertussis DNA (PCR) Not Detected (NotDetected) B.parapertussis DNA PCR Not Detected (NotDetected) C. pneumoniae DNA (PCR) Not Detected (NotDetected) Coronavirus OC43 (PCR) Not Detected (NotDetected) Coronavirus HKU1 (PCR) Not Detected (NotDetected) Coronavirus 229E (PCR) Not Detected (NotDetected) SARS-CoV-2 (PCR) Not Detected (NotDetected) Coronavirus NL63 (PCR) Not Detected (NotDetected) Human Metapneumovir PCR Not Detected (NotDetected) Influenza Type A (PCR) Not Detected (NotDetected) Influenza Type B (PCR) Not Detected (NotDetected) M. pneumoniae (PCR) Not Detected (NotDetected) Parainfluenza 1 (PCR) Not Detected (NotDetected) Parainfluenza 2 (PCR) Not Detected (NotDetected) Parainfluenza 3 (PCR) Not Detected (NotDetected) Parainfluenza 4 (PCR) Not Detected (NotDetected) RSV (PCR) Not Detected (NotDetected) Entero/Rhino (PCR) Not Detected (NotDetected) Administered Medications Discontinued Medications Aspirin (Aspirin Chew 324 Mg) 324 mg PO NOW STA Stop: 07/15/24 14:10 Last Admin: 07/15/24 14:47 Dose: 324 mg Documented By: [facility] Imaging Data Radiologist's Impression: Chest X-Ray 07/15/24 12:30 XR chest 1V not portable CLINICAL HISTORY: Chest pain, nonspecific COMPARISON STUDY: Chest radiograph June 20, 2023. Chest CT September 08, 2007. FINDINGS: Lung volumes are normal. Lungs are clear. There is no pneumothorax or pleural effusion. There is mild cardiomegaly. Mediastinal contours are normal. There is no evidence for pulmonary edema. IMPRESSION: No acute cardiopulmonary findings. ACT 112: Negative or not required by law. Electronically signed by: Gee Tran M.D. 07/15/2024 1:45 PM Discharge Plan Visit Data Chief Complaint: Asthma Stated Complaint: ASTHMA, SOB, LUNGS ED Provider: Patrizia Flower Discharge Problem: Chest pain, Non-ST elevation GA (NSTEMI) Forms Stand Alone Forms: [facility] [employer] Prescriptions Prescriptions: No Action meclizine 25 mg tablet 25 mg PO TID PRN (Reason: dizziness) Qty: 20 3RF amlodipine-olmesartan 10-40 mg tablet 1 tab PO DAILY Qty: 100 3RF Mag 64 64 mg tablet,delayed release (DR/EC) 64 mg PO DAILY Qty: 90 1RF (DME) lancets 33 gauge misc See Rx Instructions .Route Qty: 100 3RF Rx Instructions: As directed clonidine HCl 0.1 mg tablet 0.1 mg PO DAILY PRN (Reason: Hypertension) Qty: 30 0RF Rx Instructions: use for SBP > 160 pantoprazole 40 mg tablet,delayed release (DR/EC) See Rx Instructions .ROUTE .COMPLEX Qty: 180 0RF Dose Instruction: Take 1 tablet by mouth twice daily Rx Instructions: Take 1 tablet by mouth twice daily amlodipine 5 mg tablet 5 mg PO BID PRN (Reason: hypertension) Qty: 60 5RF metformin 1,000 mg tablet 1,000 mg PO BID Qty: 180 1RF (DME) OneTouch Verio test strips Strip See Rx Instructions .Route Qty: 100 3RF Rx Instructions: As directed (DME) blood-glucose meter Misc See Rx Instructions .Route Qty: 1 0RF Rx Instructions: As directed cholecalciferol (vitamin D3) 1,250 mcg (50,000 unit) capsule 50,000 unit PO .ONCE WEEKLY Qty: 12 1RF Hold Instructions: waiting for blood results before starting again albuterol sulfate 90 mcg/actuation HFA aerosol inhaler 1 inh inhalation QID PRN (Reason: shortness of breath or wheezing) Qty: 6.7 1RF vitamin A 2,400 mcg capsule 2,400 mcg PO DAILY biotin 10,000 mcg capsule 10,000 mcg PO DAILY furosemide [Lasix] 20 mg tablet 20 mg PO DAILY PRN (Reason: edema) Qty: 30 2RF azithromycin 250 mg tablet See Rx Instructions PO .COMPLEX Qty: 6 0RF Rx Instructions: For 250 mg dose pack: take 500 mg today (day 1), then 250 mg for 4 days (days 2-5) PO methylprednisolone [Medrol (Ajrun)] 4 mg tablets,dose pack 4 mg PO DAILY Qty: 21 0RF Rx Instructions: Day 1: 24 mg on day 1 administered as 8 mg before breakfast, 4 mg after lunch, 4 mg after supper, and 8 mg at bedtime or 24 mg as a single dose or divided into 2 or 3 doses upon initiation (regardless of time of day). Day 2: 20 mg on day 2 administered as 4 mg before breakfast, 4 mg after lunch, 4 mg after supper, and 8 mg at bedtime. Day 3: 16 mg on day 3 administered as 4 mg before breakfast, 4 mg after lunch, 4 mg after supper, and 4 mg at bedtime. Day 4: 12 mg on day 4 administered as 4 mg before breakfast, 4 mg after lunch, and 4 mg at bedtime. Day 5: 8 mg on day 5 administered as 4 mg before breakfast and 4 mg at bedtime. Day 6: 4 mg on day 6 administered as 4 mg before breakfast. coenzyme Q10 [CoQ-10] 100 mg Capsule 100 mg PO QAM [place]-3 Fish Oil 300-1,000 mg Capsule 1 cap PO DAILY Referrals Referrals: El Hernández MD [Primary Care Provider] -
--- NOTE | 2024-07-15 15:59 | History & Physical Report ---
Date of Service July 15, 2024 Assessment & Plan (1) Non-ST elevation LA (NSTEMI): Plan: - patient presented with left sided unstable chest pain that awoke her out of sleep 07/15 - DDx includes type 2 NSTEMI, secondary to HTN; viral pericarditis and ischemia cannot be excluded at this time - no history of stens or anticoagulant use - EKG on admission showed sinus without significant ST segment changes, no T wave inversions - troponin rise from 382.1 to 481.5 - elevated blood pressure 185/120, patient takes clonidine at home as needed for blood pressure >150, ordered - Nitro ordered as needed - start Heparin/dextrose IV and metoprolol 12.5 mg BID, aspirin given in ED - Echo ordered for AM - cardiology consulted (2) Hypertension: Plan: - Elevated on admission - Patient takes amlodipine daily and clonidine as needed for systolic blood pressure greater than 150 - one-time dose of clonidine ordered; Would not recommend clonidine intermittently as can cause rebound hypertension, Follow-up with PCP - Patient currently with headache due to elevated blood pressure, denies vision changes - Continue home amlodipine and ordered metoprolol (3) Diabetes mellitus, type 2: Plan: - on metformin at home - SSI ordered, correction factor 45, carb ratio 15 - No need for basal insulin at this time, well controlled glucose - most recent A1c 7.0 in January 2024, recommend recheck next month Plan VTE ppx: Heparinized on admission Diet: Carb consistent/DM2 Chronic stable diagnoses: GERD: continue home pantoprazole Asthma: continue home inhaler Code status: FULL CODE Admission and Anticipated Discharge Date Admission Date: 07/15/24 History of Present Illness Chief Complaint: Chest pain Primary Care Provider: El Hernández MD Patient is a 74 year-old female with a history of GERD, Type 2 DM, HTN, HDL, Asthma, vertigo, osteoarthritis. She recently finished a medrol pack and Z-Arjun for bronchitis that was diagnosed last week. She comes in today with complaints of chest pain that woke her up around 4 AM along with a coughing spell. She stated that the chest pain was in the center and right side of her chest. Since being diagnosed with bronchitis, she frequently wakes up throughout the night with coughing spells but this time she could not catch her breath; she felt like she could not get air and that there was still something stuck in her chest. show it was a cold sore, but denies vomiting. At the time of the event she was nauseous but that has since subsided. Currently she states that the chest pain is just in the center of her chest and improved, Although still present. She states that the chest pain hurts on palpation. The pain does not change with movement, sitting up, laying back, or breathing. She states that she was short of breath this morning with her coughing spell, but does not feel that right now. She does not use oxygen at home. she stated that her family doctor ordered an MRI to look for a compressed nerve in her chest on Friday. She occasionally has lower leg swelling and takes Lasix. The patient currently complains of a headache due to her elevated blood pressure. She states that every time her blood pressure gets near 200, she gets a headache. She takes clonidine as needed when her systolic pressure is greater than 150. She skips her amlodipine the days she takes the clonidine. This happens about 3-4 times per week. She still has ongoing symptoms of bronchitis including a cough, fatigue, and sore throat. She has a history dizzy spells, that occur about once a month. She currently denies dizziness, hemoptysis, lightheadedness, vision changes, abdominal pain, nausea, vomiting, and urinary changes. Patient denies being a former smoker and daily alcohol use. She denies history of previous LA, blood clots, cancer, kidney disease, and thyroid disease. A [place]ian licensed marriage and family therapist was used to complete exam along with patient's daughter at the bedside. Allergies Allergy/AdvReac Type Severity Reaction Status Date / Time procaine Allergy Unknown PER PT Verified 07/15/24 15:32 "TOLD NEVER TO TAKE NOVOCAIN" Home Medications Medication Instructions Recorded Confirmed Type coenzyme Q10 100 mg capsule 100 mg PO QAM 07/02/21 07/15/24 History (CoQ-10) vitamin A 2,400 mcg capsule 2,400 mcg PO DAILY 10/21/22 07/15/24 History biotin 10,000 mcg capsule 10,000 mcg PO DAILY 02/26/23 07/15/24 History omega-3s 300 aj-miv-fza-other 1 cap PO DAILY 03/19/23 07/15/24 History [id number] oil 1,000 mg capsule ([place]-3 Fish Oil) meclizine 25 mg tablet 25 mg PO TID PRN dizziness #20 tabs 08/04/23 07/15/24 Rx furosemide 20 mg tablet (Lasix) 20 mg PO DAILY PRN edema #30 tabs 10/28/23 07/15/24 Rx amlodipine 10 mg-olmesartan 40 mg 1 tab PO DAILY #100 tabs 12/02/23 07/15/24 Rx tablet lancets 33 gauge #100 ea 01/23/24 07/07/24 Rx clonidine HCl 0.1 mg tablet 0.1 mg PO DAILY PRN Hypertension 02/26/24 07/15/24 Rx #30 tabs amlodipine 5 mg tablet 5 mg PO BID PRN hypertension #60 04/06/24 07/15/24 Rx tabs metformin 1,000 mg tablet 1,000 mg PO BID #180 tabs 04/30/24 07/15/24 Rx blood sugar diagnostic (OneTouch #100 ea 05/31/24 07/07/24 Rx Verio test strips) blood-glucose meter #1 ea 05/31/24 07/07/24 Rx albuterol sulfate 90 mcg/actuation 1 inh inhalation QID PRN shortness 07/14/24 07/15/24 Rx aerosol inhaler of breath or wheezing #6.7 grams cholecalciferol (vitamin D3) 1,250 50,000 unit PO WK 07/15/24 07/15/24 History mcg (50,000 unit) capsule glucosamine sulf dipot 1 cap PO DAILY 07/15/24 07/15/24 History chlr,msm,chond 550 mg-C 30 mg-matt 1 mg capsule (Glucosamine Chondroitin) magnesium chloride 64 mg 64 mg PO HS 07/15/24 07/15/24 History (magnesium chloride) tablet,delayed release (Mag 64) pantoprazole 40 mg tablet,delayed 40 mg PO BID 07/15/24 07/15/24 History release Past Med/Surg History Problem List Non-ST elevation LA (NSTEMI) (Acute) Chest pain (Acute) Bilateral sciatica Lumbar radiculopathy Lower back pain Mild cognitive impairment with memory loss Vitamin D deficiency Left knee pain Hypomagnesemia Early satiety Current use of proton pump inhibitor Constipation GERD (gastroesophageal reflux disease) Leg cramps Recent skin changes Acute back pain Gastritis Abdominal pain Encounter for pre-operative examination Leg edema, left (Acute) Mixed incontinence urge and stress (Acute) Lumbar spinal stenosis (Acute) Hypothyroidism (Acute) pt denies Itching History of memory loss Flank pain Right-sided chest wall pain Right upper quadrant abdominal pain History of COVID-19 (Acute) diagnosed 03/2021--no issues now Mild cognitive impairment (Chronic) Diabetic peripheral neuropathy associated with type 2 diabetes mellitus (Chronic) Anxiety disorder (Acute) Polyneuropathy (Acute) Depression (Chronic) Asthma (Chronic) inhaler prn Hypertension (Chronic) Hyperlipidemia (Chronic) Medical History Osteoarthritis Diabetes mellitus, type 2 Surgical History Status post hardware removal History of open reduction and internal fixation (ORIF) procedure left leg fx History of colonoscopy last 2015 Case History of left cataract extraction History of total abdominal hysterectomy and bilateral salpingo-oophorectomy History of appendectomy Family History Mother Breast cancer Unknown Breast cancer Father Prostate cancer Other No family history of adverse response to anesthesia Denies family history of Ovarian cancer Myocardial infarction Colorectal cancer Social History Smoking Status: Never smoker Second Hand Exposure: No; Do You Dip or Chew Tobacco: No; Hx Alcohol Use: No Hx Substance Use: No Preferred Language: Bulgarian Communication Ability: Effective Communication Ability Comment: will need an lithographic proofer apprentice Communication Tools: IPad Visual Impairment: No Limitations Hearing Ability: Normal Web Administrator Required: Yes Beliefs That Will Affect Care: None marital status: / Current Living Situation: Alone current occupational status: retired Feels Safe at Home: Yes Childhood Exposure to Second-Hand Smoke: No Dental Care, Regularly: Yes Physical Activity Frequency: Does not Exercise Seatbelt Use: always Sunscreen Use: No Assistive Devices: Glasses Review of Systems Review of Systems: See above Physical Exam Physical Exam: The patient is awake, alert and oriented 3, well developed and well nourished, normocephalic and atraumatic, lying in bed and in no acute distress. Non-toxic appearing. HEENT- EOMI, mucous membranes moist. Hearing grossly intact. Heart-normal S1 and S2. No murmurs, rubs or gallops. Lungs-clear bilaterally, no respiratory distress, no accessory muscle use. Abdomen-normal bowel sounds and soft. Non-tender. Extremities-no cyanosis or clubbing. No edema. Dermatologic-normal skin turgor, normal color, no abnormal lymph nodes, no rash. Rheumatologic-normal range of motion. Psychiatric-normal affect. Results & Data Results & Data Vital Signs (Past 12 Hours) Vital Signs Temp Pulse Resp BP Pulse Ox O2 Del Method 07/15/24 14:31 57 L 07/15/24 14:30 59 L 20 95 07/15/24 14:28 185/120 H 07/15/24 12:26 36.8 C 68 17 161/81 H 96 Room Air Code Status & VTE Plan Code Status Full code VTE Prophylaxis Plan VTE Prophylaxis will be ordered: Yes Supervising Physician Co-Signing Physician Notes Patient seen and examined, chart reviewed, case discussed with Coty Graham PA-C and I agree with the assessment and plan as above except as otherwise noted Labs and images reviewed Cynthia is a 74-year-old female with a past medical history of bronchitis recently treated with Z-Arjun/steroids this past week, type 2 diabetes, hypothyroidism, hyperlipidemia, lumbar stenosis who presented after waking up this morning with substernal chest pain. EKG on admission is sinus without territorial ST segment changes, no T wave inversions compared to prior although lead II is with borderline amplitude. Troponin is elevated at 382, repeat 481.5. She has been on steroids for bronchitis. Bio fire is negative. DDx includes NSTEMI/viral pericarditis. Patient seen at the bedside with PA provider. History is taken with the assistance of video licensed marriage and family therapist. Candy reports that she has been treated for bronchitis with an asthma exacerbation in the last week with a cough suppressant, azithromycin, and steroids. She reports that she actually felt much better and that her cough and shortness of breath was improving but last night woke up suddenly with feeling of tightness in her chest similar to food getting stuck but also with a central chest pain quality. This improved while in the ER. She has never had a heart attack before, no history of prior heart problems to her knowledge. She does have some pain at time bedside assessment this is reproducible palpation, she is also had another pain which is not reproducible which has resolved. She reports she had some leg swelling bilaterally last week however antibiotics seem to have resolved at this and this was in both legs without pain. She has had leg swelling in the past and takes Lasix intermittently. She does not have any pain with deep breathing. She has not had palpitations does not currently feel short of breath. Bio fire is negative. She does take clonidine or amlodipine for hypertension. If her blood pressure is below 150 she takes amlodipine, if it is higher than that she takes clonidine. Takes clonidine on average 3-4 days a week and has not yet taken this. No orthopnea Causes of her chest pain and elevated troponin include ischemic, chest pain has resolved and she has not had preceding anginal symptoms. May be hypertensive, patient is hypertensive on admission and takes clonidine intermittently and is at high risk of rebound hypertension. Has been treated for bronchitis and rec ent upper respiratory infection, lower suspicion for pericarditis as her chest pain is resolved at time of bedside assessment and does not notice any positional change in her pain. Echo pending Troponin trended. Increased from 382-481. Initial chest pain did occur at rest. Dx includes demand as she has been hypertensive in 20/200s. Given chest pain at rest and rising troponin heparinized. She is also hypertensive and take clonidine as needed, clonidine x 1 given for blood pressure, and will follow-up with Nitropaste if remaining with BP greater than 180. Do not recommend home use of clonidine as needed due to risk of rebound hypertension At bedside heart rate is regular without murmurs, lungs are clear. No wheezing. Agree with above PG Care Time/CCT Total # of Minutes Spent Total Time Spent with Patient: Total time spent is greater than 50% in coordination of care (as documented) at patient's floor/unit and/or counseling patient: Coding Level of Care Code None Diagnoses Non-ST elevation LA (NSTEMI) I21.4 Hypertension I10 Diabetes mellitus, type 2 E11.9
[2024-07-15] MEDS: cloNIDine HCL 0.1 MG TAB ONE (16:17)
--- NOTE | 2024-07-15 16:35 | Billing Data ---
Date of Service July 15, 2024 Coding Level of Care Code 86689 INT INP/OBS CARE
[2024-07-15] MEDS: NITROGLYCERIN 2% OINTMENT 30GM TUBE EXT ONE (16:38)
[2024-07-15] MEDS ORDERED: ACETAMINOPHEN 325 MG TAB PO PRN (16:55)
[2024-07-15] MEDS ORDERED: COUGH DROP (SUGAR FREE) LOZ 24 LOZ/1 BOX BUCCAL PRN (16:55)
[2024-07-15] MEDS: HEPARIN SOD (PORCINE) 1000 UNIT/ML IV ONE (16:59)
[2024-07-15] MEDS: HEPARIN SODIUM/DEXTROSE 25,000 UNITS/500 ML BAG IV SCH (16:59)
[2024-07-15] MEDS: Heparin IV Adult Wt-Based Low-Dose w/ INITIAL Bolus Protocol IV STA (17:02)
[2024-07-15] MEDS ORDERED: NITROGLYCERIN SL 0.4 MG/TAB TAB SL PRN (17:34)
[2024-07-15] MEDS ORDERED: CARBOHYDRATES FOR HYPOGLYCEMIA PO PRN (17:40)
[2024-07-15] MEDS ORDERED: GLUCOSE 40% GEL 15 GM TUBE PO PRN (17:40)
[2024-07-15] MEDS ORDERED: DEXTROSE 50% 50 ML SYRINGE IV PRN (17:40)
[2024-07-15] MEDS ORDERED: GLUCAGON FOR INJ 1 MG VIAL SQ PRN (17:40)
[2024-07-15] MEDS ORDERED: GLUCOSE 10 TAB/TUBE PO PRN (17:40)
[2024-07-15] MEDS ORDERED: FUROSEMIDE 20 MG TAB PO PRN (18:11)
[2024-07-15] MEDS ORDERED: amLODIPine BESYLATE 5 MG TAB PO PRN (18:11)
[2024-07-15] MEDS: METOPROLOL TARTRATE 25 MG TAB PO SCH (21:28)
[2024-07-15] MEDS: PANTOprazole 40 MG TAB PO SCH (21:29)
[2024-07-15] MEDS: MAGNESIUM CHLORIDE W/CALCIUM 64MG DELAYED REL TAB PO SCH (21:30)
[2024-07-15] MEDS: INSULIN ASPART PER UNIT CHARGE SC SCH (22:52)
[2024-07-16 00:09] LABS: ANTI-Xa, UFH(UnfractionatedHep 0.29 IU/ml (0.3-0.7)
[2024-07-16] MEDS: BENZONATATE 100 MG CAPSULE PO PRN (05:57)
[2024-07-16] MEDS: ALBUTEROL HFA 8 GM INHALER INH PRN (06:13)
--- NOTE | 2024-07-16 07:08 | Hospitalist Progress Note ---
Date of Service July 16, 2024 Assessment & Plan (1) Non-ST elevation ND (NSTEMI): (2) Diabetes mellitus, type 2: (3) Hypertension: Plan 1) Non-ST elevation ND (NSTEMI) - patient presented with left sided unstable chest pain that awoke her out of sleep 07/15 along w/ nausea - DDx includes type 2 NSTEMI, secondary to HTN; viral pericarditis and ischemia cannot be excluded at this time - no history of stents or anticoagulant use - EKG on admission showed sinus without significant ST segment changes, no T wave inversions - HSTrop, 141 <-- 265 <-- 482 <-- 382 - elevated blood pressure 185/120, patient takes clonidine at home as needed for blood pressure >150, ordered - Nitro ordered as needed - start Heparin/dextrose IV and metoprolol 12.5 mg BID, aspirin 81 mg Daily - TTE (echocardiogram): 1) Normal LV size and function. EF 55-60%. Severe hypokinesis of distal septum and small area of apex. 2) No significant valvular abnormalities 3) Compared to prior study (05/14/19), distal septal/apical wall motion abnormality is new. - cardiology consulted - add Lipitor, 80 mg, PO, qPM (2) Hypertension - Elevated on admission, 185/120 - Patient takes amlodipine daily and clonidine as needed for systolic blood pressure greater than 150 - one-time dose of clonidine ordered; Would not recommend clonidine intermittently as can cause rebound hypertension, Follow-up with PCP - Patient currently with headache due to elevated blood pressure, denies vision changes - Continue home amlodipine and ordered metoprolol (3) Diabetes mellitus, type 2 - on metformin at home - SSI ordered, correction factor 45, carb ratio 15 - No need for basal insulin at this time, well controlled glucose - A1C, 7.0 (January 2024), recommend recheck next month Chronic stable diagnoses: 4) GERD - continue home pantoprazole 5) Asthma - continue home inhaler Code status: FULL CODE VTE ppx: Heparinized on admission Diet: Carb consistent/DM2 Admission and Anticipated Discharge Date Admission Date: July 15, 2024 Supervising Physician Co-Signing Physician Notes I personally examined the patient and verified all armijo points of history and exam, discussed case, and agree with decision making with Dr Mcallister Sedated post cath. Discussed with cardiology frequently throughout the day. Discussed with resident physician. Unable to obtain any meaningful HPI review of systems from the patient this evening. Fortunately does appear stable post cath. Vitals noted. Sleeping. Appears to be in no distress. Breathing unlabored no accessory muscle use good effort. Skin without rashes pallor or icterus. Cardiomyopathy/cough/shortness of breathhistory consistent with bronchitis, but it seems like her symptoms are more severealso fluctuating hypertensionI do wonder about clonidine withdrawal given that it sounds like she takes it sometimes for several days and not for others. It is possible that her cardiomyopathy could be due to afterload from rebound hypertension from clonidine withdrawal, or simply from uncontrolled hypertension. Need to discuss her symptoms furtherobviously sedated post cath will not be a time to be able to get a good and detailed historybut will want to revisit her history in the light of knowing that she does not have obstructive coronary diseaseand try to best determine if it seems as though there is more pulmonary illness going on versus resolving bronchitis, and try to get a good feel for what her blood pressures/medications are truly like at home. Continue current care for now. Subjective Patient feels much better this morning with less frequent chest tightness, a feeling that she needs to spit up phlegm/mucus. Patient feels this sensation that something is caught in her throat/esophagus every morning around 4/5 am, that she needs to cough up, sensation similar to piece of bread stuck in throat, but before she has her breakfast. Patient has been having a cough that is becoming a little better recently, before it was so bad that she couldn't sleep at night. Patient had felt this chest tightness w/ the tightness radiating to her thoracic spine, but not to her neck, jaw, shoulder blades, or arm. Review of Systems Constitutional: + fatigue; no fever and no chills Respiratory: + cough (nighttime cough) and + chest co ngestion; no hemoptysis Cardiovascular: + orthopnea; no chest pain and no radiat ing jaw, neck or arm pain Gastrointestinal: + abdominal pain (epigastric area); no n ausea, no vomiting, no constipation and no diarrhea/loose stools Musculoskeletal: + back pain (thoracic spine pain) Neurologic: + tingling (big toes on both feet, tingl ing present), + numbness and + dizziness; no headache(s) (only when BP > 200) Physical Exam Constitutional: WD/WN, vitals as above Respiratory: normal respiratory effort, lungs clear to auscultation Cardiovascular: RRR, no murmur, no edema Extremities: normal capillary refill; no calf tenderness and no pedal edema Gastrointestinal (Abdomen): Inspection/Auscultation: abdomen normal to inspection and normal bowel sounds Percussion/Palpation: + abdomen tender (e pigastric area bilaterally); no hepatosplenomegaly Musculoskeletal: Head/Neck/Chest: + chest tenderness Psychiatric: A+Ox3, euthymic affect Results & Data Results & Data Vital Signs (Past 12 Hours) Vital Signs Temp Pulse Pulse Pulse Resp BP BP 07/16/24 06:15 72 14 07/16/24 02:59 36.8 C 54 L 18 148/72 H 07/15/24 23:25 67 07/15/24 22:59 82 150/76 H 07/15/24 22:27 07/15/24 22:27 37.0 C 70 18 158/84 H 07/15/24 20:00 155/81 H 07/15/24 19:30 58 L 20 147/83 H Pulse Ox O2 Del Method 07/16/24 06:15 93 Room Air 07/16/24 02:59 95 Room Air 07/15/24 23:25 07/15/24 22:59 07/15/24 22:27 Room Air 07/15/24 22:27 93 Room Air 07/15/24 20:00 07/15/24 19:30 95 Diagnostic Findings Cardiac Enzymes 07/15/24 07/16/24 Range/Units 23:00 06:32 Troponin I High Sens 265.3 H* D 141.1 H* D (0-14) pg/ml CBC 07/16/24 Range/Units 06:32 WBC 8.80 (4.8-10.8) K/ul RBC 4.89 (4.20-5.40) M/uL Hgb 13.6 (12.0-16.0) g/dl Hct 42.0 (37.0-47.0) % Plt Count 221 (130-400) K/uL Comprehensive Metabolic Panel 07/16/24 Range/Units 06:32 Sodium 141 (136-145) mmol/L Potassium 3.8 (3.5-5.1) mmol/L Chloride 106 (98-107) mmol/L Carbon Dioxide 27 (21-32) mmol/L BUN 17 (6-23) mg/dl Creatinine 0.79 (0.6-1.2) mg/dl Glucose 159 H (70-99(Fasting)) mg/dl Calcium 9.1 (8.6-10.3) mg/dl Intake and Output 07/16/24 07/16/24 07/16/24 06:59 14:59 22:59 Intake Total 130.2 / 130.2 480 / 480 Output Total 450 / 450 1250 / 1250 Balance -319.8 / -319.8 -770 / -770 Intake: IV 130.2 / 130.2 Heparin Sodium/Dextrose 25,000 130.2 / 130.2 units In 500 ml @ 950 UNITS/HR 19 mls/hr IV .Q24H NIC Rx#: [id number] Oral 480 / 480 Output: Urine 450 / 450 1250 / 1250 Other: # Unmeasured Voids 1 Weight 99.5 kg Weight Measurement Method Built in [facility] Resident Activity Tracking Resident Involvement: Resident Care Provided Care Provided: Adult Hospital Medicine
[2024-07-16 07:10] LABS: Hemoglobin 13.6 g/dl (12.0-16.0); Mean Corpuscular Hemoglobin 27.8 pg (25.0-34.0); Mean Corpuscular Hgb Conc 32.4 g/dL (32.0-36.0); Mean Corpuscular Volume 85.9 fL (80.0-100.0); Mean Platelet Volume 11.6 fL (9.4-12.4); Platelet Count 221 K/uL (130-400); RDW Standard Deviation 43.8 fL (36.4-46.3); Red Blood Count 4.89 M/uL (4.20-5.40)
[2024-07-16 07:19] LABS: ANTI-Xa, UFH(UnfractionatedHep 0.31 IU/ml (0.3-0.7)
[2024-07-16 07:40] LABS: BUN Creatinine Ratio 21.5 (10-20); Calcium 9.1 mg/dl (8.6-10.3); Creatinine Clr Calc Pharmacy 71.9 ml/min; Est GFR (African American) 84.9 ml/min; Est GFR (Non-African American) 73.2 ml/min; Potassium 3.8 mmol/L (3.5-5.1)
[2024-07-16] MEDS: LOSARTAN POTASSIUM 50 MG TAB PO SCH (08:20)
[2024-07-16] MEDS: amLODIPine BESYLATE 5 MG TAB PO SCH (08:21)
[2024-07-16] MEDS: ASPIRIN 81 MG ECTAB PO SCH (08:43)
[2024-07-16] MEDS ORDERED: NON-FORMULARY MEDICATION (Amlodipine-Olmesartan 10-40 mg tablet) PO SCH (09:00)
[2024-07-16] MEDS: MECLIZINE HCL 25 MG TAB PO PRN (09:49)
--- NOTE | 2024-07-16 10:03 | XCELERA ---
[id number] [id number]
--- NOTE | 2024-07-16 10:55 | Cardiology Consultation ---
Date of Consultation July 16, 2024 Assessment & Plan (1) Non-ST elevation ND (NSTEMI): (2) Chest pain: (3) SOB (shortness of breath): (4) Hypertension: (5) Hyperlipidemia: Plan ASSESSMENT/PLAN: 1. NSTEMI: History is difficult and details of her chest discomfort are unclear despite discussion through a American interpreter deaf. Elevated troponin could be demand ischemia given severe hypertension on presentation with systolic blood pressure in the 180s but given her risk factors, new wall motion abnormality, and evolving ECG, recommend cardiac catheterization. Risks and benefits of the procedure were discussed with her in detail through the American interpreter deaf and with her daughter at the bedside. She was agreeable to proceed. Will likely proceed later this afternoon if/when lab is available as her presenting symptoms tend to occur at rest. Continue heparin drip. Continue aspirin. No beta- clifton given bradycardia. Recommend high intensity statin therapy. 2. Chest pain: She provided inconsistent details/description. Plan as above. 3. Shortness of breath: Acute episodes of shortness of breath with diaphoresis. She appears euvolemic on exam. Plan as above. 4. Hypertension: Blood pressure improved, currently mildly elevated. Continue amlodipine 10 mg daily. Continue ARB. Rather than as needed clonidine, recommend diuretic such as chlorthalidone. 5. Dyslipidemia: Recommend high intensity statin therapy. 6. Disposition: Planning for cardiac catheterization. Dr. Purdy will be available for ongoing assistance over the weekend. Please call with questions or concerns. Thank you for allowing me to participate in the care of your patient. Please call for any other questions or concerns. Sincerely, Anthony Howell M.D. History of Present Illness Reason for Consultation: NSTEMI Requesting Physician: Coty Graham PA-C Attending Physician: Bishop Walker DO History of Present Illness Ms. Lawrence is a 74-year-old female with a history significant for type 2 diabetes, hypertension, dyslipidemia, and asthma. She predominantly speaks American. History was obtained by reviewing records, speaking with the patient through American interpreter deaf (Desirae #[id number]), and her daughter who is sitting at the bedside. Obtaining history directly from the patient was difficult as she was very focused on mucus. She states that she has coughing attacks and it feels as though she is suffocating. They typically occur in the sofa inspector hours. At first, she described a substernal chest discomfort with coughing that was associated with shortness of breath but no radiation. Later in the conversation, she states that she never experiences chest pain. The admitting note specifically mentions chest discomfort as well. She denies dyspnea on exertion as she is active, tending to her garden. She has the suffocating spells with diaphoresis however that occur without trigger. She has been treated recently for bronchitis with antibiotics and steroids for presumed bronchitis. She denies fever. Symptoms persist however. She has lower extremity swelling occasionally, more so last week when her systolic blood pressure is 200 mmHg or more. She takes Lasix once or twice per week for her edema. She had another episode of her presenting symptoms at approximately 6 AM today. She was back to her baseline early this afternoon during this consultation. She denies melena, hematochezia, or hematuria. Review of systems: As above. Family history: No known premature CAD. Social history: She denies tobacco, alcohol, or drug abuse. She lives alone. Her a few years ago. She had 3 children but 1 has . Her daughter was present at the bedside and lives close by. She also has a son. Allergies Allergy/AdvReac Type Severity Reaction Status Date / Time procaine Allergy Unknown PER PT Verified 07/15/24 15:32 "TOLD NEVER TO TAKE NOVOCAIN" Home Medications Medication Instructions Recorded Confirmed Type coenzyme Q10 100 mg capsule 100 mg PO QAM 07/02/21 07/15/24 History (CoQ-10) vitamin A 2,400 mcg capsule 2,400 mcg PO DAILY 10/21/22 07/15/24 History biotin 10,000 mcg capsule 10,000 mcg PO DAILY 02/26/23 07/15/24 History omega-3s 300 qd-tmf-ega-other 1 cap PO DAILY 03/19/23 07/15/24 History [id number] oil 1,000 mg capsule (Orwell-3 Fish Oil) meclizine 25 mg tablet 25 mg PO TID PRN dizziness #20 tabs 08/04/23 07/15/24 Rx furosemide 20 mg tablet (Lasix) 20 mg PO DAILY PRN edema #30 tabs 10/28/23 07/15/24 Rx amlodipine 10 mg-olmesartan 40 mg 1 tab PO DAILY #100 tabs 12/02/23 07/15/24 Rx tablet lancets 33 gauge #100 ea 01/23/24 07/07/24 Rx clonidine HCl 0.1 mg tablet 0.1 mg PO DAILY PRN Hypertension 02/26/24 07/15/24 Rx #30 tabs amlodipine 5 mg tablet 5 mg PO BID PRN hypertension #60 04/06/24 07/15/24 Rx tabs metformin 1,000 mg tablet 1,000 mg PO BID #180 tabs 04/30/24 07/15/24 Rx blood sugar diagnostic (OneTouch #100 ea 05/31/24 07/07/24 Rx Verio test strips) blood-glucose meter #1 ea 05/31/24 07/07/24 Rx albuterol sulfate 90 mcg/actuation 1 inh inhalation QID PRN shortness 07/14/24 07/15/24 Rx aerosol inhaler of breath or wheezing #6.7 grams cholecalciferol (vitamin D3) 1,250 50,000 unit PO WK 07/15/24 07/15/24 History mcg (50,000 unit) capsule glucosamine sulf dipot 1 cap PO DAILY 07/15/24 07/15/24 History chlr,msm,chond 550 mg-C 30 mg-matt 1 mg capsule (Glucosamine Chondroitin) magnesium chloride 64 mg 64 mg PO HS 07/15/24 07/15/24 History (magnesium chloride) tablet,delayed release (Mag 64) pantoprazole 40 mg tablet,delayed 40 mg PO BID 07/15/24 07/15/24 History release Problem List (Updated 07/16/24 @ 14:27 by Marc Howell MD) SOB (shortness of breath) Non-ST elevation ND (NSTEMI) (Acute) Chest pain (Acute) Bilateral sciatica Lumbar radiculopathy Lower back pain Mild cognitive impairment with memory loss Vitamin D deficiency Left knee pain Hypomagnesemia Early satiety Current use of proton pump inhibitor Constipation GERD (gastroesophageal reflux disease) Leg cramps Recent skin changes Acute back pain Gastritis Abdominal pain Encounter for pre-operative examination Leg edema, left (Acute) Mixed incontinence urge and stress (Acute) Lumbar spinal stenosis (Acute) Hypothyroidism (Acute) pt denies Itching History of memory loss Flank pain Right-sided chest wall pain Right upper quadrant abdominal pain History of COVID-19 (Acute) diagnosed 03/2021--no issues now Mild cognitive impairment (Chronic) Diabetic peripheral neuropathy associated with type 2 diabetes mellitus (Chronic) Anxiety disorder (Acute) Polyneuropathy (Acute) Depression (Chronic) Asthma (Chronic) inhaler prn Hypertension (Chronic) Hyperlipidemia (Chronic) Patient History Medical History Osteoarthritis Diabetes mellitus, type 2 Surgical History Status post hardware removal History of open reduction and internal fixation (ORIF) procedure left leg fx History of colonoscopy last 2015 Case History of left cataract extraction History of total abdominal hysterectomy and bilateral salpingo-oophorectomy History of appendectomy Family History Mother Breast cancer Unknown Breast cancer Father Prostate cancer Other No family history of adverse response to anesthesia Denies family history of Ovarian cancer Myocardial infarction Colorectal cancer Social History Smoking Status: Never smoker Second Hand Exposure: No; Do You Dip or Chew Tobacco: No; Tobacco Cessation Education Requested by Patient: No Hx Alcohol Use: No Hx Substance Use: No Preferred Language: American Communication Ability: Effective Communication Ability Comment: will need an interpreter deaf Communication Tools: IPad and Physical Gestures Visual Impairment: No Limitations Hearing Ability: Normal Stone Layer Required: Yes Beliefs That Will Affect Care: None marital status: / Current Living Situation: Alone Current Living Situation Comment: daughter reports living 3 mins away current occupational status: retired Other Information That Helps Us Care for You: No Feels Safe at Home: Yes Safety Concerns: Feels Safe At This Time Childhood Exposure to Second-Hand Smoke: No Dental Care, Regularly: Yes Physical Activity Frequency: Does not Exercise Seatbelt Use: always Sunscreen Use: No Assistive Devices: Cane Physical Exam Physical Exam: Gen.: No acute distress. Alert. HEENT: Anicteric sclera. Neck: No JVD. No bruits. Normal carotid upstrokes bilaterally. Cardiac: Regular. Normal S1-S2. No murmurs, rubs, or gallops. Pulmonary: Mild expiratory wheezing bilaterally. Abdomen: Soft, nontender, nondistended, with normoactive bowel sounds. No bruits noted. Extremities: 2+ radial pulses bilaterally. 2+ posterior tibialis pulses bilaterally. No pitting edema or cyanosis. Results & Data Vital Signs (Past 12 Hours) Vital Signs Temp Pulse Pulse Pulse Resp BP Pulse Ox 07/16/24 07:48 36.9 C 60 17 143/74 H 91 07/16/24 07:00 67 07/16/24 06:15 72 14 93 07/16/24 02:59 36.8 C 54 L 18 148/72 H 95 07/15/24 23:25 67 07/15/24 22:59 82 150/76 H O2 Del Method 07/16/24 07:48 Room Air 07/16/24 07:00 07/16/24 06:15 Room Air 07/16/24 02:59 Room Air 07/15/24 23:25 07/15/24 22:59 Laboratory Results Laboratory Results - last 24 hr 07/15/24 07/15/24 07/15/24 12:44 14:53 22:13 WBC 11.97 H RBC 4.87 Hgb 13.9 Hct 41.2 MCV 84.6 MCH 28.5 MCHC 33.7 RDW Std Deviation 43.8 RDW Coeff of Roxanne 14.0 Plt Count 248 MPV 11.8 Immature Gran % (Auto) 0.5 Neut % (Auto) 67.9 Lymph % (Auto) 24.1 Faulk % (Auto) 6.3 Eos % (Auto) 0.8 Baso % (Auto) 0.4 Neut # (Auto) 8.13 H Lymph # (Auto) 2.89 Faulk # (Auto) 0.75 H Eos # (Auto) 0.09 Baso # (Auto) 0.05 Immature Gran # (Auto) 0.06 PT 11.0 INR 1.0 APTT 23 PTT Ratio 0.9 Heparin Anti-Xa, Unfract Sodium 140 Potassium 4.3 Chloride 103 Carbon Dioxide 29 Anion Gap 8 BUN 19 Creatinine 0.78 Est Cr Clr Drug Dosing 72.9 Est GFR ( Amer) 86.2 Est GFR (Non-Af Amer) 74.4 BUN/Creatinine Ratio 24.4 H Glucose 141 H POC Glucose 167 H Calcium 9.3 Total Bilirubin 0.7 AST 28 ALT 38 Alkaline Phosphatase 79 Troponin I High Sens 382.1 H* 481.5 H* D Total Protein 7.2 Albumin 4.1 Globulin 3.1 Albumin/Globulin Ratio 1.3 Adenovirus (PCR) Not Detected B. pertussis DNA (PCR) Not Detected B.parapertussis DNA PCR Not Detected C. pneumoniae DNA (PCR) Not Detected Coronavirus OC43 (PCR) Not Detected Coronavirus HKU1 (PCR) Not Detected Coronavirus 229E (PCR) Not Detected SARS-CoV-2 (PCR) Not Detected Coronavirus NL63 (PCR) Not Detected Human Metapneumovir PCR Not Detected Influenza Type A (PCR) Not Detected Influenza Type B (PCR) Not Detected M. pneumoniae (PCR) Not Detected Parainfluenza 1 (PCR) Not Detected Parainfluenza 2 (PCR) Not Detected Parainfluenza 3 (PCR) Not Detected Parainfluenza 4 (PCR) Not Detected RSV (PCR) Not Detected Entero/Rhino (PCR) Not Detected Group A Strep (PCR) NOT DETECTED 07/15/24 07/15/24 07/16/24 22:56 23:00 06:32 WBC 8.80 RBC 4.89 Hgb 13.6 Hct 42.0 MCV 85.9 MCH 27.8 MCHC 32.4 RDW Std Deviation 43.8 RDW Coeff of Roxanne 14.0 Plt Count 221 MPV 11.6 Immature Gran % (Auto) Neut % (Auto) Lymph % (Auto) Faulk % (Auto) Eos % (Auto) Baso % (Auto) Neut # (Auto) Lymph # (Auto) Faulk # (Auto) Eos # (Auto) Baso # (Auto) Immature Gran # (Auto) PT INR APTT PTT Ratio Heparin Anti-Xa, Unfract 0.29 L 0.31 Sodium 141 Potassium 3.8 Chloride 106 Carbon Dioxide 27 Anion Gap 8 BUN 17 Creatinine 0.79 Est Cr Clr Drug Dosing 71.9 Est GFR ( Amer) 84.9 Est GFR (Non-Af Amer) 73.2 BUN/Creatinine Ratio 21.5 H Glucose 159 H POC Glucose Calcium 9.1 Total Bilirubin AST ALT Alkaline Phosphatase Troponin I High Sens 265.3 H* D 141.1 H* D Total Protein Albumin Globulin Albumin/Globulin Ratio Adenovirus (PCR) B. pertussis DNA (PCR) B.parapertussis DNA PCR C. pneumoniae DNA (PCR) Coronavirus OC43 (PCR) Coronavirus HKU1 (PCR) Coronavirus 229E (PCR) SARS-CoV-2 (PCR) Coronavirus NL63 (PCR) Human Metapneumovir PCR Influenza Type A (PCR) Influenza Type B (PCR) M. pneumoniae (PCR) Parainfluenza 1 (PCR) Parainfluenza 2 (PCR) Parainfluenza 3 (PCR) Parainfluenza 4 (PCR) RSV (PCR) Entero/Rhino (PCR) Group A Strep (PCR) 07/16/24 07:48 WBC RBC Hgb Hct MCV MCH MCHC RDW Std Deviation RDW Coeff of Roxanne Plt Count MPV Immature Gran % (Auto) Neut % (Auto) Lymph % (Auto) Faulk % (Auto) Eos % (Auto) Baso % (Auto) Neut # (Auto) Lymph # (Auto) Faulk # (Auto) Eos # (Auto) Baso # (Auto) Immature Gran # (Auto) PT INR APTT PTT Ratio Heparin Anti-Xa, Unfract Sodium Potassium Chloride Carbon Dioxide Anion Gap BUN Creatinine Est Cr Clr Drug Dosing Est GFR ( Amer) Est GFR (Non-Af Amer) BUN/Creatinine Ratio Glucose POC Glucose 159 H Calcium Total Bilirubin AST ALT Alkaline Phosphatase Troponin I High Sens Total Protein Albumin Globulin Albumin/Globulin Ratio Adenovirus (PCR) B. pertussis DNA (PCR) B.parapertussis DNA PCR C. pneumoniae DNA (PCR) Coronavirus OC43 (PCR) Coronavirus HKU1 (PCR) Coronavirus 229E (PCR) SARS-CoV-2 (PCR) Coronavirus NL63 (PCR) Human Metapneumovir PCR Influenza Type A (PCR) Influenza Type B (PCR) M. pneumoniae (PCR) Parainfluenza 1 (PCR) Parainfluenza 2 (PCR) Parainfluenza 3 (PCR) Parainfluenza 4 (PCR) RSV (PCR) Entero/Rhino (PCR) Group A Strep (PCR) Diagnostic Findings Echo 07/16/2024: Normal LV size. EF 55 to 60%. Severe hypokinesis of the distal septum/small area of apex. Moderate LVH. No significant valve abnormalities. Normal RVSP. ECG personally reviewed 07/15/2024: Sinus rhythm 66 bpm. Poor R wave progression. Possible inferior infarct. Nonspecific T wave abnormality. Repeat ECG personally requested and reviewed: ECG 07/16/2024 11:15 AM: Sinus bradycardia 59 bpm. Anterior T wave inversion. Prolonged QT. Labs reviewed and notable for elevated high-sensitivity troponin, peaking at 481, normal renal function, normal transaminase levels, normal magnesium, normal blood counts. History and physical report reviewed. Chest x-ray 07/15/2024: No acute cardiopulmonary findings per radiology. Medications Administered Current Inpatient Medications Acetaminophen (Acetaminophen 325 Mg Tab) 650 mg PO Q4H PRN PRN Reason: Pain or Fever Stop: 08/14/24 16:54 Albuterol (Albuterol Hfa 8 Gm Inhaler) 1 puffs INH QID PRN PRN Reason: shortness of breath or wheezing Stop: 08/14/24 18:10 Last Admin: 07/16/24 06:13 Dose: 1 puffs Amlodipine Besylate (Amlodipine Besylate 5 Mg Tab) 10 mg PO DAILY NIC Stop: 08/15/24 08:59 Last Admin: 07/16/24 08:21 Dose: 10 mg Aspirin (Aspirin 81 Mg Ectab) 81 mg PO QAM NIC Stop: 08/15/24 08:59 Last Admin: 07/16/24 08:43 Dose: 81 mg Benzonatate (Benzonatate 100 Mg Capsule) 200 mg PO TID PRN PRN Reason: Cough Stop: 08/15/24 05:42 Last Admin: 07/16/24 05:57 Dose: 200 mg Clonidine HCl (Clonidine Hcl 0.1 Mg Tab) 0.1 mg PO DAILY PRN PRN Reason: Hypertension Stop: 08/14/24 18:10 Dextrose (Dextrose 50% 50 Ml Syringe) 25 - 50 ml IV UD PRN; Protocol PRN Reason: Hypoglycemia Protocol Stop: 08/14/24 17:39 Glucagon (Glucagon For Inj 1 Mg Vial) 1 mg SQ UD PRN; Protocol PRN Reason: Hypoglycemia Protocol Stop: 08/14/24 17:39 Glucose (Glucose 40% Gel 15 Gm Tube) 15 - 30 gm PO UD PRN; Protocol PRN Reason: Hypoglycemia Protocol Stop: 08/14/24 17:39 Glucose (Glucose 10 Tab/Tube) 4 - 8 tab PO UD PRN; Protocol PRN Reason: Hypoglycemia Treatment Stop: 08/14/24 17:39 Heparin Sodium/Dextrose (Heparin Sodium/Dextrose) 25,000 units in 500 mls @ 19 mls/hr IV .Q24H NIC; Protocol Stop: 08/14/24 16:59 Last Titration: 07/16/24 00:13 Dose: 950 units/hr, 19 mls/hr Insulin Aspart (Insulin Aspart Per Unit Charge) 0 units SC ACHS NIC Stop: 08/14/24 20:59 Last Admin: 07/16/24 08:22 Dose: 5 units Losartan Potassium (Losartan Potassium 50 Mg Tab) 100 mg PO DAILY NIC Stop: 08/15/24 08:59 Last Admin: 07/16/24 08:20 Dose: 100 mg Magnesium Chloride (Magnesium Chloride W/Calcium 64mg Delayed Rel Tab) 64 mg PO HS [facility] Stop: 08/14/24 20:59 Last Admin: 07/15/24 21:30 Dose: 64 mg Meclizine HCl (Meclizine Hcl 25 Mg Tab) 25 mg PO TID PRN PRN Reason: dizziness Stop: 08/14/24 18:10 Last Admin: 07/16/24 09:49 Dose: 25 mg Menthol (Cough Drop (Sugar Free) Dandre 24 Dandre/1 Box) 1 dandre BUCCAL Q2H PRN PRN Reason: Sore Throat Stop: 08/14/24 16:54 Metoprolol Tartrate (Metoprolol Tartrate 25 Mg Tab) 12.5 mg PO BID [facility] Stop: 08/14/24 20:59 Last Admin: 07/15/24 21:28 Dose: 12.5 mg Miscellaneous (Carbohydrates For Hypoglycemia ) 15 - 30 gm PO UD PRN PRN Reason: Hypoglycemia Protocol Stop: 08/14/24 17:39 Nitroglycerin (Nitroglycerin Sl 0.4 Mg/Tab Tab) 0.4 mg SL PRN PRN PRN Reason: Chest Pain Stop: 08/14/24 17:33 Pantoprazole Sodium (Pantoprazole 40 Mg Tab) 40 mg PO BID [facility] Stop: 08/14/24 20:59 Last Admin: 07/16/24 08:20 Dose: 40 mg PG Care Time/CCT Total # of Minutes Spent Total Time Spent with Patient: Total time spent is greater than 50% in coordination of care (as documented) at patient's floor/unit and/or counseling patient: Coding Level of Care Code 40112 INT INP/OBS CARE 3/75MIN Diagnoses Non-ST elevation ND (NSTEMI) I21.4 Chest pain R07.9 SOB (shortness of breath) R06.02 Hypertension I10 Hyperlipidemia E78.5
[2024-07-16] MEDS: niCARdipine HCL INJ 2.5 MG/ML 10 ML AMP ONE (16:18)
[2024-07-16] MEDS: HEPARIN (PORCINE) 1000 UNIT/ML 10 ML (CATH LAB USE ONLY) ONE (16:19)
[2024-07-16] MEDS: LIDOCAINE 1% LOCAL 20 ML VIAL ONE (16:19)
[2024-07-16] MEDS: NITROGLYCERIN/D5W 100MCG/ML 20ML SYR ONE (16:19)
[2024-07-16] MEDS: fentaNYL citrate PF 100 MCG/2 ML VIAL ONE (16:20)
[2024-07-16] MEDS: MIDAZOLAM HCL 1 MG/ML 2ML VIAL ONE (16:20)
--- NOTE | 2024-07-16 16:34 | Post Operative Brief Note ---
Cardiology Brief Post Op Date of Surgery July 16, 2024 Pre & Post Diagnosis Operation Date: 07/16/24 15:30 <No data on this case meets the specified criteria> Procedure cardiac cath Boatswains Mate Marc Howell MD Reaming Machine Operator For Plastic Giovanny Estimated Blood Loss 10 Findings See Below No significant CAD.
--- NOTE | 2024-07-16 16:35 | Post Anesthesia Assessment ---
Date of Service July 16, 2024 Post Sedation Assessment Vital Signs Temp Pulse Pulse Pulse Resp BP BP 07/16/24 14:50 37.4 C 68 18 133/71 07/16/24 11:37 37.1 C 57 L 17 145/71 H 07/16/24 09:00 07/16/24 07:48 36.9 C 60 17 143/74 H 07/16/24 07:00 67 07/16/24 06:15 72 14 07/16/24 02:59 36.8 C 54 L 18 148/72 H 07/15/24 23:25 67 07/15/24 22:59 82 150/76 H 07/15/24 22:27 07/15/24 22:27 37.0 C 70 18 158/84 H 07/15/24 20:00 155/81 H 07/15/24 19:30 58 L 20 147/83 H 07/15/24 18:30 137/76 07/15/24 18:30 137/76 07/15/24 18:30 137/76 07/15/24 18:30 60 20 07/15/24 18:07 18 142/75 H 07/15/24 18:07 07/15/24 18:00 142/75 H 07/15/24 18:00 59 L 17 07/15/24 17:30 128/60 07/15/24 17:30 128/60 07/15/24 17:30 128/60 07/15/24 17:30 61 22 07/15/24 17:00 162/75 H 07/15/24 16:57 63 25 H 07/15/24 16:35 188/104 H 07/15/24 16:35 66 188/104 H Pulse Ox O2 Del Method 07/16/24 14:50 91 Room Air 07/16/24 11:37 91 Room Air 07/16/24 09:00 Room Air 07/16/24 07:48 91 Room Air 07/16/24 07:00 07/16/24 06:15 93 Room Air 07/16/24 02:59 95 Room Air 07/15/24 23:25 07/15/24 22:59 07/15/24 22:27 Room Air 07/15/24 22:27 93 Room Air 07/15/24 20:00 07/15/24 19:30 95 07/15/24 18:30 07/15/24 18:30 07/15/24 18:30 07/15/24 18:30 93 07/15/24 18:07 90 Room Air 07/15/24 18:07 90 Room Air 07/15/24 18:00 07/15/24 18:00 92 07/15/24 17:30 07/15/24 17:30 07/15/24 17:30 07/15/24 17:30 93 07/15/24 17:00 07/15/24 16:57 93 07/15/24 16:35 07/15/24 16:35 Recovery Score Activity: Moves 4 extremities Respiration: Deep Breath/Cough Circulation: +/-20% PreAnes Value Consciousness: Fully Awake Oxygen Saturation: > 92% On Room Air Discharge Sedation Level of Care: Fast Track Phase II Post Sedation Plan On clinical assessment, the patient appears to have tolerated the sedation without complications. Patient is recovering as anticipated. Patient will continue to be monitored by nursing and may be discharged when sedation discharge criteria are met per below protocol. Upon Completions of procedure up to 15 minutes continue every 5 minute vital signs and the P.A.R. score; then discharge to a Phase I or Fast Track to Phase II per the following guidelines: * Discharge Patient to appropriate Phase II area if PAR is 8 or greater or return to pre- procedure baseline. The post - procedure orders will be as directed. * If PAR score is less than 8 or not return to pre-procedure baseline then patient will follow Phase I monitoring till PAR is reached for Phase II. The Phase I may be done in procedure room or may call to secure a Phase I area. * If naloxone or flumazenil are used for reversal, hold in Phase I for continued monitoring from when last reversal dose was given for a minimum of 60 minutes or longer pending the nurse and/or physician discretion of patient condition before discharge to Phase II. Please call the Sedation Physician to re-evaluate and complete post-note for discharge to Phase II area. Do NOT discharge from procedure sedation or Phase 1 until post- sedation evaluation note is complete by procedure /sedation MD Sedation Discharge Instructions to be given to the patient at discharge to home.
[2024-07-16] MEDS: OPTIRAY 350 ONE (17:17)
--- NOTE | 2024-07-16 18:57 | Billing Data ---
Date of Service July 16, 2024 Coding Level of Care Code 02904 SUB INP/OBS CARE
--- NOTE | 2024-07-16 20:05 | Cardiac Catheterization ---
[facility] Data: Cloth Tester Quality Cardiac Status Clinical evaluation leading to the procedure CAD Presenation: Non STEMI Anginal Classification: No Symptoms Heart Failure: No Cardiogenic Shock within 24 Hours: No Cardiac Arrest within 24 Hours: No Imaging Studies Past 6 Months: Yes Stress Studies Past 6 Months: No Coronary Anatomy Dominant: Right Diagnostic Physicians Name: Marc Howell MD Status: Elective Closure Device Percutaneous Entry Location: Radial Closure Device: Radial Band Recommendations: Management Recommendatons Cardiac Cath Procedure Full Procedure Date July 16, 2024 Pre-Procedure Diagnosis Pre-Procedure Diagnosis: Non STEMI AUC Score AUC Score: 7 Post-Procedure Diagnosis Post-Procedure Diagnosis: Normal Coronary Arteries Procedure(s) Performed Procedure(s) Performed: Coronary Angiography and Left Heart Cath Lithographed Plate Inspector Marc Howell MD Commercial Artist(s) Giovanny Estimated Blood Loss Estimated Blood Loss: < 20 ml Medication(s) Medication(s): Fentanyl, Heparin, Lidocaine 1%, Nicardipine and Versed Summary of Findings Procedures: 1. Coronary angiography 2. Left heart catheterization 3. Moderate sedation Indication: NSTEMI with wall motion abnormality on echo and evolving ECG. Coronary angiography: 1. Left main: No significant CAD. 2. Left anterior descending: No significant CAD within the LAD and large branching diagonal vessel. 3. Circumflex: No significant CAD. 4. Right coronary artery: Large, dominant vessel. Luminal irregularities noted in the late mid RCA. No significant CAD within the PDA and PL branch. 5. Ramus intermedius: No significant CAD. Left heart catheterization: 1. No aortic stenosis. 2. Normal LVEDP; 10 mmHg. 3. Left ventriculography was not performed. Moderate sedation: 1. Sedation start time: 4:06 PM 2. Sedation end time: 4:24 PM Impression: 1. No significant CAD. 2. Normal left-sided filling pressure. 3. No aortic stenosis. Plan: 1. Optimize blood pressure. 2. Risk factor modification. 3. Consider further lung imaging to evaluate etiology of her symptoms. Hemodynamics Rest Ao:: 148/65 Final Ao: 149/59 LV: 147/3/10 Recommendations Recommendations: Management Recommendatons Specimens Specimens: None Radiation Exposure (mGy) 1108 mGy. Fluoro time 5.1 min. Contrast (mls) 75 ml Procedural Complication(s) None Disposition PCU I attest to the content of the Intraoperative Record and any orders documented t herein. Any exceptions are noted below. [facility] Card Cath Procedure Codes Cardiac Catheterization Procedure 1: Cardiovascular Cath Procedures: 76257 Coronaries and LHC (+/-LV) Moderate Sedation Procedure 1: Sedation/Anesthesia: 11416 Mod Sedation by the same physician;Init15 Min Child Age 5 & Up Procedure 2: Sedation/Anesthesia: 70780 Mod Sedation by the same physician; Ea [id number] Minutes PG Care Time/CCT Total # of Minutes Spent Total Time Spent with Patient: Total time spent is greater than 50% in coordination of care (as documented) at patient's floor/unit and/or counseling patient:
[2024-07-16] MEDS ORDERED: ATORVASTATIN 40 MG TAB PO SCH (21:00)
--- NOTE | 2024-07-16 22:49 | Electrocardiogram Report ---
Test Reason : Blood Pressure : */* mmHG Vent. Rate : 66 BPM Atrial Rate : 66 BPM P-R Int : 162 ms QRS Dur : 78 ms QT Int : 406 ms P-R-T Axes : * -10 233 degrees QTcB Int : 425 ms Normal sinus rhythm Inferior infarct , age undetermined Anteroseptal infarct (cited on or before 24-Feb-2018) Abnormal ECG When compared with ECG of 16-Jul-2022 04:22, Inferior infarct is now Present Questionable change in initial forces of Anterior leads Nonspecific T wave abnormality now evident in Inferior leads Nonspecific T wave abnormality, improved in Lateral leads Confirmed by Marc Howell ([id number]) on 07/16/2024 10:49:01 PM Referred By: Confirmed By: Marc Howell
--- NOTE | 2024-07-16 22:50 | Electrocardiogram Report ---
Test Reason : Blood Pressure : */* mmHG Vent. Rate : 59 BPM Atrial Rate : 59 BPM P-R Int : 174 ms QRS Dur : 76 ms QT Int : 508 ms P-R-T Axes : 16 14 144 degrees QTcB Int : 502 ms Sinus bradycardia Anteroseptal infarct (cited on or before 24-Feb-2018) T wave abnormality, consider lateral ischemia Prolonged QT Abnormal ECG When compared with ECG of 15-Jul-2024 12:39, Criteria for Inferior infarct are no longer Present Nonspecific T wave abnormality, improved in Inferior leads T wave inversion now evident in Anterior leads T wave inversion now evident in T wave abnormality, consider lateral ischemia QT has lengthened Confirmed by Marc Howell ([id number]) on 07/16/2024 10:50:06 PM Referred By: REFERRED SELF Confirmed By: Marc Howell
[2024-07-17 06:59] LABS: Hematocrit (blood only) 43.3 % (37.0-47.0); Mean Corpuscular Hgb Conc 34.6 g/dL (32.0-36.0); Mean Corpuscular Volume 83.8 fL (80.0-100.0); Mean Platelet Volume 11.4 fL (9.4-12.4); Platelet Count 259 K/uL (130-400); RDW Standard Deviation 42.9 fL (36.4-46.3); Red Blood Count 5.17 M/uL (4.20-5.40); White Blood Count 10.72 K/ul (4.8-10.8)
[2024-07-17 07:33] LABS: BUN Creatinine Ratio 21.3 (10-20); Calcium 9.3 mg/dl (8.6-10.3); Est GFR (African American) 73.5 ml/min; Est GFR (Non-African American) 63.4 ml/min; Potassium 4.1 mmol/L (3.5-5.1)
[2024-07-17] MEDS: POLYETHYLENE (MIRALAX) 17 GM PACK PO SCH (10:48)
--- NOTE | 2024-07-17 16:31 | Hospitalist Progress Note ---
Date of Service July 17, 2024 Assessment & Plan (1) Non-ST elevation [place] (NSTEMI): (2) Diabetes mellitus, type 2: (3) Hypertension: Plan Patient is a 74-year-old female with past medical history of asthma, hypertension, GERD, type 2 diabetes mellitus, and hyperlipidemia who was admitted due to substernal chest pain with elevated troponins that raise concerns for NSTEMI versus demand ischemia given high blood pressures. Chest pain w/ SOB Elevated troponins // NSTEMI versus demand ischemia versus other -Troponins peaked at 482 and more recently was 141 -EKG at the time of admission remarkable -Cardiac catheterization performed due to presenting symptoms and echocardiogram findings of severe hypokinesis of distal septum and small area of the apex, however no significant CAD found -Consider elevation in troponin may be secondary to demand ischemia from elevated BP at time of admission (185/120) -In terms of etiology for chest pain, possible that her symptoms may have been multifactorial (strain from coughing for 1 month, potential asthma exacerbation, elevated blood pressure) -Overnight awakening due to difficulty breathing may be related to symptom from potential bronchitis augmented by anxiety when remembering previous asthma exacerbations -Continue beta-clifton, aspirin 81 mg, and high intensity statin -Continue Tessalon Perles, and will add guaifenesin, Zyrtec for bronchitis symptoms that may be contributing to chest pain -Given patient stable, will downgrade patient to Med/Surg today -If clinically stable, possible discharge for tomorrow Hypertension - Elevated on admission, 185/120 - Patient takes amlodipine-olmesartan daily and clonidine as needed for systolic blood pressure greater than 180 - States she has been using Clonidine 3-4 times per week even before her current symptoms started - BP have been between 140-160s systolic and 70-80 diastolic with home regimen - Continue to monitor BP Diabetes mellitus, type 2 - on metformin at home - A1C, 7.0 (01/2024) - SSI orderd - No need for basal insulin at this time, well controlled glucose GERD - continue home pantoprazole Asthma - continue home inhaler Code status: FULL CODE VTE ppx: Lovenox Diet: Carb consistent/DM2 Dispo: possible discharge back home tomorrow if clinically stable Admission and Anticipated Discharge Date Admission Date: July 15, 2024 Supervising Physician Co-Signing Physician Notes I personally examined the patient and verified all armijo points of history and exam, discussed case, and agree with decision making with Dr Murcia Extensive discussionsrevisited HPI. Updated on current working diagnoses and planusing medical record retrieval specialist. patient expressed good understanding, felt like she will feel more up to going home tomorrow. Vitals noted, in general she is awake and alert pleasant no distress. HEENT normocephalic atraumatic mucous membranes moist. Breathing unlabored no accessory muscle use good effort. Skin shows no rashes no pallor or icterus. Neuro without focal deficits. Cardiomyopathy/cough/shortness of breath Given clean cath, I suspect being sick with a bronchitis as well as uncontrolled hypertension has led to some degree of afterload mediated cardiomyopathyhopefully will resolve. Continue med management. Hopefully home tomorrow. DVT proph - lovenox Subjective Patient at bedside and patient found to be awake alert and oriented in all spheres, comfortable, no acute distress. Haitian dance teacher used. Patient refers improvement of chest pain, however does still endorse having significant coughing that is now productive of sputum that is nonbloody. She refers that when she is coughing and when she is done coughing she feels like she has some difficulty breathing because she has "willy a mass blocking her airway ". Refers that she has the same sensation at home mainly during the night when she wakes up with a dry cough trying to produce some sputum. At these times when patient is coughing during the night, patient states that she feels her arms and legs become shaky, has difficulty breathing like her airways are closing, and states she feels like "she is going to ". She has been having a cough for approximately 1 month but worsened these last 2 weeks. Around the same time, patient went to see her PCP and she was given an antibiotic and a steroid, and was advised to use Mucinex for symptom control. When her symptoms of dry cough leading to chest tightness sensation did not resolve with these medications, patient went to ED due to concern of asthma exacerbation as she has had these in the past. Denies having any fevers, chills, weakness, nausea/vomiting/diarrhea, or any other systemic symptoms. Physical Exam Physical Exam: GENERAL: AAOx3, afebrile, conversation occasionally interrupted by coughing, NAD CV: RRR, no r/m/g PULM: CTA b/l, normal respiratory effort, no respiratory distress, breathing at room air GI: soft, nontender, nondistended EXTR: no swelling in b/l LE Results & Data Results & Data Vital Signs (Past 12 Hours) Vital Signs Temp Pulse Pulse Resp BP Pulse Ox O2 Del Method 07/17/24 13:57 75 07/17/24 11:30 36.6 C 66 18 148/74 H 93 Room Air 07/17/24 08:00 Room Air 07/17/24 07:43 36.5 C 70 18 159/78 H 96 Room Air 07/17/24 07:00 67 Resident Activity Tracking Resident Involvement: Resident Care Provided Care Provided: Adult Hospital Medicine
--- NOTE | 2024-07-17 18:17 | Billing Data ---
Date of Service July 17, 2024 Coding Level of Care Code 93889 SUB INP/OBS CARE
[2024-07-17] MEDS: CETIRIZINE HCL 10 MG TABLET PO SCH (19:48)
[2024-07-17] MEDS: guaiFENesin 600 MG TABCR PO SCH (20:40)
[2024-07-18 06:12] LABS: Hematocrit (blood only) 41.7 % (37.0-47.0); Hemoglobin 13.9 g/dl (12.0-16.0); Mean Corpuscular Hemoglobin 28.5 pg (25.0-34.0); Mean Corpuscular Hgb Conc 33.3 g/dL (32.0-36.0); Mean Corpuscular Volume 85.6 fL (80.0-100.0); Mean Platelet Volume 11.3 fL (9.4-12.4); Platelet Count 217 K/uL (130-400); RDW Coefficient of Variation 14.1 % (11.5-14.5); RDW Standard Deviation 43.9 fL (36.4-46.3); Red Blood Count 4.87 M/uL (4.20-5.40); White Blood Count 10.96 K/ul (4.8-10.8)
[2024-07-18] MEDS: cloNIDine HCL 0.1 MG TAB PO PRN (06:27)
[2024-07-18 06:30] LABS: BUN Creatinine Ratio 26.3 (10-20); Calcium 9.1 mg/dl (8.6-10.3); Creatinine Clr Calc Pharmacy 71.2 ml/min; Est GFR (African American) 83.6 ml/min; Est GFR (Non-African American) 72.1 ml/min; Potassium 4.2 mmol/L (3.5-5.1)
[2024-07-18 07:42] VITALS: RESP 16
[2024-07-18] MEDS: ENOXAPARIN INJ 40 MG/0.4 ML SYR SQ SCH (08:33)
[2024-07-18] MEDS ORDERED: ENOXAPARIN INJ 40 MG/0.4 ML SYR SQ SCH (09:00)
--- NOTE | 2024-07-18 11:56 | Hospitalist Progress Note ---
Date of Service July 18, 2024 Assessment & Plan (1) Non-ST elevation [place] (NSTEMI): (2) Diabetes mellitus, type 2: (3) Hypertension: Plan Patient is a 74-year-old female with past medical history of asthma, hypertension, GERD, type 2 diabetes mellitus, and hyperlipidemia who was admitted due to substernal chest pain with elevated troponins that raise concerns for NSTEMI versus demand ischemia given high blood pressures. Nighttime chest pain w/ SOB Elevated troponins // NSTEMI versus demand ischemia versus other -Troponins peaked at 482 and more recently was 141 -EKG at the time of admission remarkable -Cardiac catheterization with no significant CAD found -Consider elevation in troponin may be secondary to demand ischemia from elevated BP at time of admission (185/120) -In terms of etiology for chest pain, possible that her symptoms may have been multifactorial (strain from coughing for 1 month, GERD symptoms, potential asthma exacerbation, elevated blood pressure) -Overnight awakening due to difficulty breathing may be related to symptom from potential bronchitis plus bronchospasm/laryngospasm from acid reflux augmented by anxiety when remembering previous asthma exacerbations -Continue beta-clifton, aspirin 81 mg, and high intensity statin -Continue Tessalon Perles and PPI, and will add Pepcid; stop guaifenesin and zyrtec as it had no effect over sxs -If clinically stable, possible discharge for tomorrow Hypertension - Elevated on admission, 185/120 - Patient takes amlodipine-olmesartan daily and clonidine as needed for systolic blood pressure greater than 180 - States she has been using Clonidine 3-4 times per week even before her current symptoms started - BP have been stable - Continue to monitor BP Diabetes mellitus, type 2 - on metformin at home - A1C, 7.0 (01/2024) - SSI orderd - No need for basal insulin at this time, well controlled glucose GERD - continue home pantoprazole - Add Pepcid as detailed above Asthma - continue home inhaler Code status: FULL CODE VTE ppx: Lovenox Diet: Carb consistent/DM2 Dispo: possible discharge back home tomorrow if clinically stable Admission and Anticipated Discharge Date Admission Date: July 15, 2024 Supervising Physician Co-Signing Physician Notes I personally examined the patient and verified all armijo points of history and exam, discussed case, and agree with decision making with Dr Murcia Extensive discussions again. Daughter present. Offered medical interpreterpatient/daughter prefer her to do the talking. Patient does seem to be more calm todayhad another episode early in the morning. Also describes a lot of other symptoms consistent with reflux. Vitals noted, in general she is awake and alert pleasant no distress. HEENT normocephalic atraumatic mucous membranes moist. Breathing unlabored no accessory muscle use good effort. Skin shows no rashes no pallor or icterus. Neuro without focal deficits. Cardiomyopathy/cough/shortness of breath Her overnight shortness of breath episodes seem to largely be multifactorial with postnasal drip likely causing a choking sensation, and reflux likely causing a degree of laryngospasm. Continue to manage postnasal drip, escalate acid suppression. Time to improve from bronchitis and to likely reduce how reflux issue might be from having recently been on steroids. Overnight pulse ox for reassurance. Continue supportive care. Given clean cath, cardiomyopathy likely stress-induced versus less likely afterload from uncontrolled hypertension. Blood pressurecontinue to manage and follow. Hopefully home tomorrow. DVT proph - lovenox Subjective Overnight episode of dry cough leading to SOB and anxiety. Managed w/ nebulizer therapy and anxiolytic. No symptoms at time of evaluation. Patient states she had chest pain overnight as well that she describes as epigastric maybe going up to the center of her chest and describes it as burning sensation. Follows GI for GERD sxs. No systemic sxs. Physical Exam Physical Exam: GENERAL: AAOx3, afebrile, NAD CV: RRR, no r/m/g PULM: CTA b/l, normal respiratory effort, no respiratory distress, breathing at room air GI: soft, nontender, nondistended EXTR: no swelling in b/l LE Results & Data Results & Data Vital Signs (Past 12 Hours) Vital Signs Temp Pulse Resp BP Pulse Ox O2 Del Method 07/18/24 07:39 36.4 C L 63 16 113/56 L 92 Room Air 07/18/24 06:03 78 18 94 Room Air 07/18/24 05:59 87 32 H 217/111 H 94 Room Air Resident Activity Tracking Resident Involvement: Resident Care Provided Care Provided: Adult Hospital Medicine
[2024-07-18] MEDS: BENZONATATE 100 MG CAPSULE PO ONE (15:49)
--- NOTE | 2024-07-18 17:55 | Billing Data ---
Date of Service July 18, 2024 Coding Level of Care Code 35667 SUB INP/OBS CARE
[2024-07-18] MEDS: BENZONATATE 100 MG CAPSULE PO SCH (20:46)
[2024-07-18] MEDS: FAMOTIDINE 20 MG TAB PO SCH (20:47)
[2024-07-18] MEDS ORDERED: BENZONATATE 100 MG CAPSULE PO SCH (21:00)
[2024-07-19 07:34] VITALS: BP 157/69; TEMP 97.5; O2SAT 94
--- NOTE | 2024-07-19 07:34 | Hospitalist Progress Note ---
Date of Service July 19, 2024 Assessment & Plan (1) Non-ST elevation [place] (NSTEMI): (2) Diabetes mellitus, type 2: (3) Hypertension: Plan Patient is a 74-year-old female with past medical history of asthma, hypertension, GERD, type 2 diabetes mellitus, and hyperlipidemia who was admitted due to substernal chest pain with elevated troponins that raise concerns for NSTEMI versus demand ischemia given high blood pressures. Nighttime chest pain w/ SOB Elevated troponins // NSTEMI versus demand ischemia versus other -Troponins peaked at 482 and more recently was 141 -EKG at the time of admission remarkable -Cardiac catheterization with no significant CAD found -Consider elevation in troponin may be secondary to demand ischemia from elevated BP at time of admission (185/120) -In terms of etiology for chest pain, possible that her symptoms may have been multifactorial (strain from coughing for 1 month, GERD symptoms, potential asthma exacerbation, elevated blood pressure) -Overnight awakening due to difficulty breathing may be related to symptom from potential bronchitis plus bronchospasm/laryngospasm from acid reflux augmented by anxiety when remembering previous asthma exacerbations -Continue beta-clifton, aspirin 81 mg, and high intensity statin -Continue Tessalon Perles and PPI, and will add Pepcid; stop guaifenesin and zyrtec as it had no effect over sxs -If clinically stable, possible discharge for tomorrow Hypertension - Elevated on admission, 185/120 - Patient takes amlodipine-olmesartan daily and clonidine as needed for systolic blood pressure greater than 180 - States she has been using Clonidine 3-4 times per week even before her current symptoms started - BP have been stable - Continue to monitor BP Diabetes mellitus, type 2 - on metformin at home - A1C, 7.0 (01/2024) - SSI orderd - No need for basal insulin at this time, well controlled glucose GERD - continue home pantoprazole - Add Pepcid as detailed above Asthma - continue home inhaler Code status: FULL CODE VTE ppx: Lovenox Diet: Carb consistent/DM2 Dispo: possible discharge back home tomorrow if clinically stable Admission and Anticipated Discharge Date Admission Date: July 15, 2024 Review of Systems Review of Systems: As per above Results & Data Results & Data Vital Signs (Past 12 Hours) Vital Signs Temp Pulse Pulse Resp BP Pulse Ox Pulse Ox 09/02/24 05:19 91 07/19/24 03:45 61 90 07/19/24 00:36 61 91 07/18/24 22:15 63 93 07/18/24 20:43 36.9 C 69 16 139/75 95 O2 Del Method O2 Del Method 07/19/24 05:19 Room Air 07/19/24 03:45 Room Air 07/19/24 00:36 Room Air 07/18/24 22:15 Room Air 07/18/24 20:43 Room Air Resident Activity Tracking Resident Involvement: Resident Care Provided Care Provided: Adult Hospital Medicine
--- NOTE | 2024-07-19 12:38 | Discharge Summary ---
Date of Service July 19, 2024 Admission HPI Per Admitting Provider Patient is a 74 year-old female with a history of GERD, Type 2 DM, HTN, HDL, Asthma, vertigo, osteoarthritis. She recently finished a medrol pack and Z-Arjun for bronchitis that was diagnosed last week. She comes in today with complaints of chest pain that woke her up around 4 AM along with a coughing spell. She stated that the chest pain was in the center and right side of her chest. Since being diagnosed with bronchitis, she frequently wakes up throughout the night with coughing spells but this time she could not catch her breath; she felt like she could not get air and that there was still something stuck in her chest. show it was a cold sore, but denies vomiting. At the time of the event she was nauseous but that has since subsided. Currently she states that the chest pain is just in the center of her chest and improved, Although still present. She states that the chest pain hurts on palpation. The pain does not change with movement, sitting up, laying back, or breathing. She states that she was short of breath this morning with her coughing spell, but does not feel that right now. She does not use oxygen at home. she stated that her family doctor ordered an MRI to look for a compressed nerve in her chest on Friday. She occasionally has lower leg swelling and takes Lasix. The patient currently complains of a headache due to her elevated blood pressure. She states that every time her blood pressure gets near 200, she gets a headache. She takes clonidine as needed when her systolic pressure is greater than 150. She skips her amlodipine the days she takes the clonidine. This happens about 3-4 times per week. She still has ongoing symptoms of bronchitis including a cough, fatigue, and sore throat. She has a history dizzy spells, that occur about once a month. She currently denies dizziness, hemoptysis, lightheadedness, vision changes, abdominal pain, nausea, vomiting, and urinary changes. Patient denies being a former smoker and daily alcohol use. She denies history of previous SD, blood clots, cancer, kidney disease, and thyroid disease. A Ethiopian user interface developer was used to complete exam along with patient's daughter at the bedside. Admission Exam Per Admitting Provider The patient is awake, alert and oriented 3, well developed and well nourished, normocephalic and atraumatic, lying in bed and in no acute distress. Non-toxic appearing. HEENT- EOMI, mucous membranes moist. Hearing grossly intact. Heart-normal S1 and S2. No murmurs, rubs or gallops. Lungs-clear bilaterally, no respiratory distress, no accessory muscle use. Abdomen-normal bowel sounds and soft. Non-tender. Extremities-no cyanosis or clubbing. No edema. Dermatologic-normal skin turgor, normal color, no abnormal lymph nodes, no rash. Rheumatologic-normal range of motion. Psychiatric-normal affect. Principal Diagnosis chest pain, bronchitis Discharge Exam Constitutional WD/WN, vitals as above Eyes + anicteric sclerae ENMT Ears: no external ear abnormality Nose: no external nose abnormality Moist mucous membranes Respiratory normal respiratory effort and + cough; no respiratory distress and does not use accessory muscles Auscultation: lungs clear to auscultation bilaterally Cardiovascular Rate/Rhythm: regular rate and regular rhythm Musculoskeletal Moves limbs independently Skin no rashes, warm and dry Neurologic No focal defects appreciated Psychiatric A+Ox3, euthymic affect Discharge Data Allergies Allergy/AdvReac Type Severity Reaction Status Date / Time procaine Allergy Unknown PER PT Verified 07/15/24 15:32 "TOLD NEVER TO TAKE NOVOCAIN" Consultations 07/15/24 15:01 ED Decision to Admit Stat 07/15/24 17:05 Consult Cardiology Routine Procedures Performed Operation Date: 07/16/24 15:30 Actual Procedures p Cineradiography w/Routine Exam - Marc Howell MD p Cath, Left with Cors and Vent - Marc Howell MD Ordered Studies 07/16/24 15:49 CL Cath Imgs for PACS use only Routine Chest X-Ray 07/15/24 12:30 XR chest 1V not portable CLINICAL HISTORY: Chest pain, nonspecific COMPARISON STUDY: Chest radiograph June 20, 2023. Chest CT September 08, 2007. FINDINGS: Lung volumes are normal. Lungs are clear. There is no pneumothorax or pleural effusion. There is mild cardiomegaly. Mediastinal contours are normal. There is no evidence for pulmonary edema. IMPRESSION: No acute cardiopulmonary findings. ACT 112: Negative or not required by law. Electronically signed by: Gee Tran M.D. 07/15/2024 1:45 PM Hospital Course (1) SOB (shortness of breath): (2) Chest pain: (3) Asthma: (4) Hypertension: (5) Anxiety disorder: (6) GERD (gastroesophageal reflux disease): (7) Current use of proton pump inhibitor: Plan Patient is a 74-year-old female with past medical history of asthma, hypertension, GERD, type 2 diabetes mellitus, and hyperlipidemia who was admitted due to substernal chest pain with elevated troponins that raise concerns for NSTEMI versus demand ischemia given high blood pressures. [employer] language interpretation services utilized for Ethiopian translation during interactions. Nighttime chest pain w/ SOB | Elevated Troponin Troponin peaked at 482 and downtrended. Cardiac catheterization completed with no significant CAD found. Consider elevation in troponin may be secondary to demand ischemia from elevated BP at time of admission (185/120). Continue beta clifton, aspirin, statin. Suspect that her symptoms may have been multifactorial (strain from coughing for 1 month, GERD symptoms, ?bronchitis, elevated blood pressure). Overnight awakening due to difficulty breathing may be related to symptom from potential bronchitis plus bronchospasm/laryngospasm from acid reflux. Patient was symptom free overnight after addition of Pepcid to PPI and Tessalon Perles. Overnight pulse oximetry study showed mean spO2 of 92%, with minimal desaturations (only documented desaturations to mid 80s% occurred within one <5 minute period). Lower suspicion for FAISAL or nighttime hypoxemia. Patient feels "much better" today and is eager to be discharged. States she already has an appointment with her PCP, Dr. Hernández tomorrow as well as a previously scheduled MRI. Prescriptions sent to pharmacy and encouraged scheduled follow up. Hypertension Elevated on admission reaching to 185/120. Patient takes amlodipine-olmesartan daily and clonidine as needed for systolic blood pressure greater than 180. States she has been using Clonidine 3-4 times per week in the last 7 days. Has remained at ~150s systolic for majority of admission, could consider further adjustment of antihypertensives if her BP remains in this range as outpatient. Diabetes mellitus, type 2 On metformin at home, sliding scale insulin ordered while admitted. Resume home metformin at times of discharge. GERD Continue home pantoprazole 40mg BID, added Pepcid 20mg BID on 07/18. Plan for ongoing trial of Pepcid for next 2 weeks. No episodes of "blockage" sensation in throat overnight, suspect that this could be laryngospasm vs secondary to flare in GERD after recent steroid course. Could consider upper endoscopy if symptoms worsen or if she develops dysphagia or choking sensations with eating. Asthma Continue home inhaler Total Time Total Time Spent Total Time Spent (In Minutes): .I spent 20 minutes at bedside talking to the patient utilizing the bedside remote translating service. I spent 5 minutes reviewing the chart and an additional 5 minutes in documentation. Discharge Plan Discharge Items Patient Disposition: Home - Self-Care Reason For Visit: CHEST PAIN Discharge Diagnosis: Demand ischemia secondary to elevated blood pressures; bronchitis and flare of GERD Activity: Per Instructions section Non-emergency contact: Primary Care Provider Call non-emergency contact if: your symptoms worsen Follow-up/Referrals: El Hernández MD [Primary Care Provider] - Diet: Carb Consistent or DM2 Addtl Attending Provider Instructions: You were admitted to the hospital due to chest pain and cough/shortness of breath. At the time we were admitted, the level of heart proteins (troponin) were elevated, which raised concern for your chest pain being related to your heart being injured. For this reason, we spoke with our cardiologists and they did a procedure to look at your heart and see if there is any obstruction in your vessels (cardiac catheterization), but thankfully there were none, making a heart attack a less likely explanation of your chest pain (recommendations about aftercare for your catheterization procedure are detailed below). Therefore, we believe your chest pain may have come as a consequence of your elevated blood pressure and the strain from constant coughing and its impact over your asthma. While in the hospital, we got your blood pressure to decrease to more acceptable range and got better control of your cough. We advise you continue with the blood pressure medications as you have been taking them while in the hospital. As discussed today, it may take a while for your cough to resolve, and until it does, we advise you continue taking Tessalon Perles to control your cough, as well as expectorants such as guaifenesin to ease the passage of mucus. You can also use antihistamines such as Zyrtec daily to help with cough and any post nasal drip that may be contributing to your cough. Please avoid using decongestants such as pseudoephedrine or oxymetazoline (one brand that has this ingredient is Sudafed) as these can worsen your blood pressure. With regards to your Clonidine, as discussed, this medication can lead to what is called rebound hypertension, which essentially means that if you use it frequently and stop it suddenly, it can lead to worsening elevations in your blood pressure as something similar to a "withdrawal" effect. For this reason, we recommend you let your primary care provider know if you find yourself having to use your Clonidine more than 3 times a week since at this point, it may indicate your medications may need to be adjusted for better control of your blood pressure and you may need another medication instead of the Clonidine to use as needed when blood pressure reaches a certain number. For your cough, we will continue the Tessalon Perles. We will also continue increased regimen of Protonix twice daily plus Pepcid twice daily, you should continue this regimen at least for two week or until as instructed by our PCP. A discharge summary will be sent to your primary care physician to ensure continuity of care. Please bring this discharge summary with you to your next office appointment so that your provider can review it at that time. Follow-up appointments: Keep your follow up appointment with Dr. Hernández tomorrow Medications: Your medication list has been reviewed and reconciled upon discharge to ensure accuracy and continuity of care. An updated list of all your medications is included with your hospital discharge paperwork. Please review this list closely, and make note of any changes. Addtl Back Shoe Worker Provider Instructions: ACTIVITY RECOMMENDATIONS: Excess manipulation of the wrist should be avoided for the next 24-48 hours. * No lifting over 2 pounds (approximately a 1/2 gallon of milk) with the utilized arm for 24 hours. * No strenuous activity such as bowling or tennis for 3 days. * Keep the site of the procedure covered with a bandage for 24 hours. *You may shower the day after the procedure. Do not take a tub bath or submerge the puncture site in water for the next 3 days. *Do not operate any motorized equipment for 3 days. SPECIAL CARE INSTRUCTIONS: The site may be slightly bruised and sore following your procedure. Should any of the following occur, contact the DrMark who performed your procedure. 1. Redness/inflammation, swelling, chills, or fever, or colored drainage at procedure site within 3-7 days after your procedure. 2. Coldness, discoloration, ongoing numbness, severe pain, or swelling. Expect mild tingling of hand and tenderness at the puncture site for up to three days. If this persists beyond three days, or other symptoms develop, notify the Dr. who performed your procedure. BLEEDING: If the procedure site on your wrist begins to bleed, do not panic 1. Place 1 or 2 fingers firmly just slightly above the insertion site to stop the bleeding. You may be able to feel your pulse as you hold pressure. 2. Lift your finger after 5 minutes to see if the bleeding has stopped. 3. Once the bleeding has stopped, gently wipe the wrist area clean with a bandage. * If the bleeding from your wrist does not stop after 10 minutes, or if there is a large amount of bleeding or spurting, call 911 (do not drive yourself to the hospital). SKIN IRRITATION: * You may experience some redness and/or swelling in the area where radiation was administered. If any skin irritation occurs, please contact your family physician. FOLLOW UP VISIT: Keep any scheduled doctor appointments. Pending Studies at Discharge: No Stand-Alone Forms: [facility] Medications and DC Order Prescriptions: New famotidine 20 mg Tablet 20 mg PO BID 14 Days Qty: 28 0RF benzonatate 100 mg Capsule 200 mg PO TID 5 Days Qty: 30 0RF Continued meclizine 25 mg tablet 25 mg PO TID PRN (Reason: dizziness) Qty: 20 3RF amlodipine-olmesartan 10-40 mg tablet 1 tab PO DAILY Qty: 100 3RF (DME) lancets 33 gauge misc See Rx Instructions .Route Qty: 100 3RF Rx Instructions: As directed clonidine HCl 0.1 mg tablet 0.1 mg PO DAILY PRN (Reason: Hypertension) Qty: 30 0RF Rx Instructions: use for SBP > 160 amlodipine 5 mg tablet 5 mg PO BID PRN (Reason: hypertension) Qty: 60 5RF metformin 1,000 mg tablet 1,000 mg PO BID Qty: 180 1RF (DME) OneTouch Verio test strips Strip See Rx Instructions .Route Qty: 100 3RF Rx Instructions: As directed (DME) blood-glucose meter Misc See Rx Instructions .Route Qty: 1 0RF Rx Instructions: As directed albuterol sulfate 90 mcg/actuation HFA aerosol inhaler 1 inh inhalation QID PRN (Reason: shortness of breath or wheezing) Qty: 6.7 1RF vitamin A 2,400 mcg capsule 2,400 mcg PO DAILY biotin 10,000 mcg capsule 10,000 mcg PO DAILY furosemide [Lasix] 20 mg tablet 20 mg PO DAILY PRN (Reason: edema) Qty: 30 2RF coenzyme Q10 [CoQ-10] 100 mg Capsule 100 mg PO QAM [place]-3 Fish Oil 300-1,000 mg Capsule 1 cap PO DAILY Glucosamine Chondroitin 550-30-1 mg Capsule 1 cap PO DAILY pantoprazole 40 mg tablet,delayed release (DR/EC) 40 mg PO BID Rx Instructions: Take 1 tablet by mouth twice daily cholecalciferol (vitamin D3) 1,250 mcg (50,000 unit) capsule 50,000 unit PO WK Rx Instructions: TUESDAYS magnesium chloride [Mag 64] 64 mg tablet,delayed release (DR/EC) 64 mg PO HS Discharge Orders: Discharge Order (Routine); Ordered 07/19/24 Ordered By: Roseann Richards Admission Data Admit Date/Time: 07/15/24 17:08 Attending Provider: Josue Euceda Admit Provider: Jamar Minor Primary Care Provider: El Hernández Other Providers: Jamar Minor; Marc Howell Other Interventions: Discharge Summary Assessment (RN) Last Done: 07/19/24 13:22 Supervising Physician Co-Signing Physician Notes I also saw the patient for armijo portions of the clinical history and physical examination. I agree with the impression and plan as noted in the resident discharge summary. Patient through the use of the remote user interface developer tells us that she feels much better today. She slept well overnight. She has no complaints this morning. She is anticipating discharge so that she can keep both her PCP appointment previously scheduled for tomorrow as well as a previously scheduled MRI for back issues. Agree with addition of Pepcid 20 mg twice daily in addition to her Protonix. Continued need for this can be reassessed at outpatient follow-up. Tessalon pearls also added; this gave the patient some symptomatic relief while in the hospital. Resident Activity Tracking Resident Involvement: Resident Care Provided Care Provided: Adult [facility] Medicine
[2024-07-19 13:39] VITALS: PULSE 54
== END 2024-07-19 13:45 | disposition home or self-care (01) | DRG 202 ==
LOC: ED 12:03 → EDINP 17:08 → SUATTDRO 17:08 → EDINP 18:12 → 2S 22:27 → 3N 07-17 18:34

== ENCOUNTER 2024-09-02 10:23 | Observation (INO) ==
--- NOTE | 2024-09-02 11:15 | XRay Report ---
XR chest 1V portable CLINICAL HISTORY: Dysrhythmia TECHNIQUE: Single frontal radiograph of the chest was obtained. Comparison: Comparison is made to chest radiograph 07/15/2024 FINDINGS: No lines and tubes are seen. Cardiomegaly is noted. Right perihilar density is seen. The lungs are cl ear. No evidence of pleural effusion or pneumothorax. IMPRESSION: Right perihilar density may represent prominent pulmonary nodule versus lymphadenopathy. If there is clinical concern, CT can be performed. ACT 112: Negative or not required by law. Electronically signed by: Nicolas Cartwright M.D. 09/02/2024 11:14 AM
[2024-09-02] MEDS: SODIUM CHLORIDE 0.9% 500 ML IV STA (11:25)
--- NOTE | 2024-09-02 11:25 | Emergency Department Note ---
Impression & Plan Atrial fibrillation with rapid ventricular response ADMIT ED Provider Note HPI: History obtained from patient and patient's daughter at the bedside The patient is a 74-year-old female with history of anxiety disorder, type 2 diabetes, acid reflux, presents the emergency department today with a chief complaint of tachyarrhythmia. Patient was seen earlier today in the gastroenterology office and noted to have tachycardia, EKG was performed and showed new onset atrial fibrillation with an elevated heart rate and therefore the patient was sent to the ER to be assessed. On arrival here to the ED the patient is noted to be tachycardic, she appears to be in atrial fibrillation with RVR on the monitor with rates in the 120s. Patient is hypertensive on arrival but otherwise saturating well on room air and she appears to be in no acute distress. ROS: - Per HPI Differential Diagnosis: Tachyarrhythmia to include SVT, atrial fibrillation with RVR, ventricular tachycardia, WPW, acute coronary syndrome, critical electrolyte abnormality, amongst other potential pathologies. *Outpatient medications and allergy history reviewed. PE: General: Alert HEENT: Normocephalic, trachea midline Eyes: Extraocular eye movement is intact, no scleral erythema Pulmonary: Clear to auscultation bilaterally, no wheezing Cardio: Tachycardic rate with irregular rhythm GI: Abdomen is soft to palpation : No suprapubic tenderness MSK: No evidence of trauma or malformation of the extremities, no edema Skin: No evidence of rash Neuro: Alert, no focal deficits Psychiatric: Cooperative INDEPENDENT INTERPRETATIONS: monitoring manager: (As interpreted by myself): - An order was placed for continuous cardiac monitoring - Patient was noted to be in atrial fibrillation with a rate of 135 EKG: (As interpreted by myself): Rate: 114 Rhythm: Atrial fibrillation with RVR Intervals: Within normal limits ST changes: No ST elevation Time: 1041 Chest x-ray: (As interpreted by myself): No focal pneumonia, right perihilar density is noted Interventions provided in ED: -IV diltiazem bolus, IV diltiazem drip, IV metoprolol Medical Decision Making: IV was established and lab work obtained, patient was placed on desk monitor. Lab work shows no leukocytosis, hemoglobin is normal, platelet count is normal, CMP does not show any evidence of any critical findings. Troponin is negative, magnesium is normal, TSH is within normal limits. EKG obtained here in the ED does show evidence of atrial fibrillation with RVR, patient was able to achieve better rate control with IV diltiazem and IV metoprolol. She was placed on IV diltiazem drip and heart rate is 93 on my reassessment at approximately 3:07 PM. Patient does have new onset atrial fibrillation, given this she will be placed for admission to the hospitalist service. I discussed the patient's presentation with Dr. Pierre and he is in agreement for admission. Chest x-ray does show evidence of a nonspecific perihilar density. This may require CT imaging on inpatient or outpatient basis for further assessment. Patient was informed of this finding. Patient is in agreement for admission and she was placed for admission in stable condition. Consultants/Discussions held with other healthcare providers: -Hospitalist, Dr. Pierre. Disposition discussion held by myself with: -Patient and patient's family. * CRITICAL CARE TIME: ( 40 ) minutes -Stabilization of tachyarrhythmia/atrial fibrillation with RVR requiring IV rate control medications for improvement, time spent at the bedside, interpretation of diagnostic studies including EKG, discussion with other healthcare providers and arrangement of admission. Diagnosis: 1. Atrial fibrillation with RVR, acute, new onset Disposition: Admission Curtis Hagan DO Emergency Medicine Past Med/Surg History Problem List (Updated 09/02/24 @ 14:55 by Ward Pierre MD) Atrial fibrillation with RVR Tachycardia Cough Bilateral sciatica Lumbar radiculopathy Lower back pain Mild cognitive impairment with memory loss Vitamin D deficiency Left knee pain Hypomagnesemia Early satiety Current use of proton pump inhibitor Constipation GERD (gastroesophageal reflux disease) Leg cramps Recent skin changes Acute back pain Gastritis Abdominal pain Encounter for pre-operative examination Leg edema, left (Acute) Mixed incontinence urge and stress (Acute) Lumbar spinal stenosis (Acute) Hypothyroidism (Acute) pt denies Itching History of memory loss Flank pain Right-sided chest wall pain Right upper quadrant abdominal pain History of COVID-19 (Acute) diagnosed 03/2021--no issues now Mild cognitive impairment (Chronic) Diabetic peripheral neuropathy associated with type 2 diabetes mellitus (Chronic) Anxiety disorder (Acute) Polyneuropathy (Acute) Depression (Chronic) Asthma (Chronic) inhaler prn Medical History SOB (shortness of breath) Non-ST elevation DE (NSTEMI) Chest pain Hyperlipidemia Hypertension Osteoarthritis Diabetes mellitus, type 2 Surgical History Status post hardware removal History of open reduction and internal fixation (ORIF) procedure History of colonoscopy History of left cataract extraction History of total abdominal hysterectomy and bilateral salpingo-oophorectomy History of appendectomy Family History Mother Breast cancer Unknown Breast cancer Father Prostate cancer Other No family history of adverse response to anesthesia Denies family history of Ovarian cancer Myocardial infarction Colorectal cancer Social History Smoking Status: Never smoker Second Hand Exposure: No; Do You Dip or Chew Tobacco: No; Hx Alcohol Use: No Hx Substance Use: No Preferred Language: Mosotho Communication Ability: Effective Communication Ability Comment: will need an chartered wealth manager Communication Tools: IPad Visual Impairment: No Limitations Hearing Ability: Normal Drier And Evaporator Operator Required: Yes Beliefs That Will Affect Care: None marital status: / Current Living Situation: Alone Current Living Situation Comment: daughter reports living 3 mins away current occupational status: retired Feels Safe at Home: Yes Childhood Exposure to Second-Hand Smoke: No Dental Care, Regularly: Yes Physical Activity Frequency: Does not Exercise Seatbelt Use: always Sunscreen Use: No Assistive Devices: Cane Allergies Allergies Allergy/AdvReac Type Severity Reaction Status Date / Time procaine Allergy Unknown PER PT Verified 09/02/24 08:48 "TOLD NEVER TO TAKE NOVOCAIN" Home Meds Home Medications Medication Instructions Recorded Confirmed coenzyme Q10 100 mg capsule 100 mg PO QAM 07/02/21 09/02/24 (CoQ-10) vitamin A 2,400 mcg capsule 2,400 mcg PO DAILY 10/21/22 09/02/24 biotin 10,000 mcg capsule 10,000 mcg PO DAILY 02/26/23 09/02/24 omega-3s 300 an-ayv-oie-other 1 cap PO DAILY 03/19/23 09/02/24 [id number] oil 1,000 mg capsule ([place]-3 Fish Oil) cholecalciferol (vitamin D3) 1,250 50,000 unit PO WK 07/15/24 09/02/24 mcg (50,000 unit) capsule glucosamine sulf dipot 1 cap PO DAILY 07/15/24 09/02/24 chlr,msm,chond 550 mg-C 30 mg-matt 1 mg capsule (Glucosamine Chondroitin) magnesium chloride 64 mg 64 mg PO HS 07/15/24 09/02/24 (magnesium chloride) tablet,delayed release (Mag 64) pantoprazole 40 mg tablet,delayed 40 mg PO BID 07/15/24 09/02/24 release Previous Rx's Medication Instructions Recorded meclizine 25 mg tablet 25 mg PO TID PRN dizziness #20 tabs 08/04/23 furosemide 20 mg tablet (Lasix) 20 mg PO DAILY PRN edema #30 tabs 10/28/23 amlodipine 10 mg-olmesartan 40 mg 1 tab PO DAILY #100 tabs 12/02/23 tablet lancets 33 gauge #100 ea 01/23/24 clonidine HCl 0.1 mg tablet 0.1 mg PO DAILY PRN Hypertension 02/26/24 #30 tabs metformin 1,000 mg tablet 1,000 mg PO BID #180 tabs 04/30/24 blood sugar diagnostic (OneTouch #100 ea 05/31/24 Verio test strips) blood-glucose meter #1 ea 05/31/24 albuterol sulfate 90 mcg/actuation 1 inh inhalation QID PRN shortness 07/14/24 aerosol inhaler of breath or wheezing #6.7 grams famotidine 20 mg tablet 20 mg PO BID #60 tabs 08/09/24 Results & Data (ED) Vital Signs Vital Signs - 24 hr 09/02/24 10:26 09/02/24 10:41 09/02/24 11:00 Temperature 36.4 C L Temperature Source Temporal Artery Scan Pulse Rate 133 H 125 H Pulse Rate [Apical] Pulse Rate from SpO2 Sensor Respiratory Rate 20 22 Respiratory Effort / Characteristics Non-Labored Spontaneous Respiratory Depth Normal Respiratory Pattern Blood Pressure 222/117 H 163/125 H Blood Pressure [Right Arm] Blood Pressure Mean 152 129 Blood Pressure Mean [Right Arm] Pulse Oximetry 96 95 Oxygen Delivery Method Room Air Sepsis Recent Fever Within 48 Hours No Sepsis New/Unexplained Change in Mental Status No Sepsis Action Taken by Nursing No Action Required 09/02/24 11:30 09/02/24 12:21 09/02/24 12:31 Temperature Temperature Source Pulse Rate 116 H 102 H 103 H Pulse Rate [Apical] Pulse Rate from SpO2 Sensor Respiratory Rate 22 16 Respiratory Effort / Characteristics Respiratory Depth Respiratory Pattern Blood Pressure 165/122 H 161/97 H Blood Pressure [Right Arm] Blood Pressure Mean 136 116 Blood Pressure Mean [Right Arm] Pulse Oximetry 97 96 Oxygen Delivery Method Sepsis Recent Fever Within 48 Hours Sepsis New/Unexplained Change in Mental Status Sepsis Action Taken by Nursing 09/02/24 13:15 09/02/24 13:16 09/02/24 13:33 Temperature Temperature Source Pulse Rate 112 H 111 H Pulse Rate [Apical] 98 H Pulse Rate from SpO2 Sensor Respiratory Rate 18 18 Respiratory Effort / Characteristics Respiratory Depth Respiratory Pattern Blood Pressure 161/134 H 145/111 H Blood Pressure [Right Arm] 161/134 H Blood Pressure Mean 137 Blood Pressure Mean [Right Arm] 143 Pulse Oximetry 97 97 Oxygen Delivery Method Room Air Sepsis Recent Fever Within 48 Hours Sepsis New/Unexplained Change in Mental Status Sepsis Action Taken by Nursing 09/02/24 13:47 09/02/24 14:00 09/02/24 14:00 Temperature Temperature Source Pulse Rate 93 H 98 H 86 Pulse Rate [Apical] Pulse Rate from SpO2 Sensor Respiratory Rate 22 17 19 Respiratory Effort / Characteristics Respiratory Depth Respiratory Pattern Blood Pressure 167/122 H 146/95 H 146/95 H Blood Pressure [Right Arm] Blood Pressure Mean 140 124 124 Blood Pressure Mean [Right Arm] Pulse Oximetry 97 95 97 Oxygen Delivery Method Sepsis Recent Fever Within 48 Hours Sepsis New/Unexplained Change in Mental Status Sepsis Action Taken by Nursing 09/02/24 14:15 09/02/24 14:15 09/02/24 15:00 Temperature Temperature Source Pulse Rate 86 89 Pulse Rate [Apical] 85 Pulse Rate from SpO2 Sensor 93 H Respiratory Rate 20 16 Respiratory Effort / Characteristics Non-Labored Spontaneous Respiratory Depth Normal Respiratory Pattern Regular Blood Pressure 146/95 H 175/132 H Blood Pressure [Right Arm] 157/100 H Blood Pressure Mean 146 Blood Pressure Mean [Right Arm] 119 Pulse Oximetry 97 97 Oxygen Delivery Method Room Air Sepsis Recent Fever Within 48 Hours Sepsis New/Unexplained Change in Mental Status Sepsis Action Taken by Nursing Laboratory Data 09/02/24 14:07 09/02/24 11:00 Lab Results 09/02/24 09/02/24 Range/Units 11:00 14:07 WBC Cancelled 7.16 RBC Cancelled 4.59 Hgb Cancelled 13.1 Hct Cancelled 39.2 MCV Cancelled 85.4 MCH Cancelled 28.5 MCHC Cancelled 33.4 RDW Std Deviation Cancelled 44.5 RDW Coeff of Roxanne Cancelled 14.4 Plt Count Cancelled 239 MPV Cancelled 11.2 Immature Gran % (Auto) Cancelled 0.1 Neut % (Auto) Cancelled 58.3 Lymph % (Auto) Cancelled 32.8 Potter % (Auto) Cancelled 6.7 Eos % (Auto) Cancelled 1.5 Baso % (Auto) Cancelled 0.6 Neut # (Auto) Cancelled 4.17 Lymph # (Auto) Cancelled 2.35 Potter # (Auto) Cancelled 0.48 Eos # (Auto) Cancelled 0.11 Baso # (Auto) Cancelled 0.04 Immature Gran # (Auto) Cancelled 0.01 Absolute Nucleated RBC Cancelled Nucleated RBC % (auto) Cancelled Neutrophils % (Manual) Cancelled Band Neutrophils % Cancelled Lymphocytes % (Manual) Cancelled Prolymphocyte % Cancelled Reactive Lymphs % (Man) Cancelled Monocytes % (Manual) Cancelled Eosinophils % (Manual) Cancelled Basophils % (Manual) Cancelled Metamyelocytes % (Man) Cancelled Myelocytes % (Man) Cancelled Promyelocytes % (Man) Cancelled Blast Cells % (Manual) Cancelled Plasma Cell % (Manual) Cancelled Other Cells % Cancelled Nucleated RBC % Cancelled Neutrophils # (Manual) Cancelled Band Neutrophils # Cancelled Total Absolute Neuts Cancelled Lymphocytes # (Manual) Cancelled Prolymphocyte # Cancelled Reactive Lymphs # Cancelled Total Abs Lymphocytes Cancelled Monocytes # (Manual) Cancelled Eosinophils # (Manual) Cancelled Basophils # (Manual) Cancelled Metamyelocytes # (Man) Cancelled Myelocytes # (Manual) Cancelled Promyelocytes # (Man) Cancelled Blast Cells # (Man) Cancelled Plasma Cell # (Manual) Cancelled Other Cells # Cancelled Nucleated RBCs # (Man) Cancelled Hypersegmented Neuts Cancelled Hyposegmented Neuts Cancelled Hypogranular Neuts Cancelled Large Granular Lymphs Cancelled # Lrg Granular Lymphs Cancelled Hairy Cells Cancelled Smudge Cells Cancelled Toxic Granulation Cancelled Toxic Vacuolation Cancelled Dohle Bodies Cancelled Arianna Rods Cancelled Platelet Estimate Cancelled Hypogranular Platelets Cancelled Giant Platelets Cancelled Platelet Satelliting Cancelled RBC Morphology Cancelled Polychromasia Cancelled Hypochromasia Cancelled Poikilocytosis Cancelled Basophilic Stippling Cancelled Anisocytosis Cancelled Microcytosis Cancelled Macrocytosis Cancelled Spherocytes Cancelled Pappenheimer Bodies Cancelled Sickle Cells Cancelled Target Cells Cancelled Tear Drop Cells Cancelled Ovalocytes Cancelled Stomatocytes Cancelled Barber-[place] Bodies Cancelled Echinocytes Cancelled Acanthocytes (Spur) Cancelled Rouleaux Cancelled RBC Agglutinates Cancelled Schistocytes Cancelled Sezary Cell Cancelled PT 11.3 (9.0-12.0) Seconds INR 1.0 (0.9-1.1) Sodium 140 (136-145) mmol/L Potassium 4.4 (3.5-5.1) mmol/L Chloride 106 (98-107) mmol/L Carbon Dioxide 28 (21-32) mmol/L Anion Gap 6 (3-11) BUN 15 (6-23) mg/dl Creatinine 0.71 (0.6-1.2) mg/dl Est Cr Clr Drug Dosing 76.6 ml/min eGFR 88.61 BUN/Creatinine Ratio 21.1 H (10-20) Glucose 133 H (70-99(Fasting)) mg/dl Calcium 9.7 (8.6-10.3) mg/dl Magnesium 1.7 (1.7-2.4) mg/dl Total Bilirubin 0.9 (0.2-1.0) mg/dl AST 28 (13-39) U/L ALT 44 (7-52) U/L Alkaline Phosphatase 76 (34-104) U/L Troponin I High Sens 8.6 (0-14) pg/ml Total Protein 7.4 (6.0-8.3) gm/dl Albumin 4.2 (3.4-5.0) gm/dl Globulin 3.2 (2.5-4.0) gm/dl Albumin/Globulin Ratio 1.3 (0.9-2) TSH 3.405 (0.300-4.500) uIu/ml Blood Parasites ID Cancelled Administered Medications Diltiazem HCl 125 mg/ Dextrose 125 mls @ 5 mls/hr IV .Q24H NIC; Protocol Stop: 10/02/24 12:59 Last Titration: 09/02/24 15:00 Dose: 5 mg/hr, 5 mls/hr Documented By: VIRGINIE Co-signed By: MMF Admin: 09/02/24 13:34 Dose: 5 mg/hr, 5 mls/hr Documented By: DEANNA Co-signed By: ARS Discontinued Medications Diltiazem HCl (Diltiazem Hcl 5 Mg/Ml 5 Ml Vial) 15 mg IV NOW STA Stop: 09/02/24 11:24 Last Admin: 09/02/24 11:30 Dose: 15 mg Documented By: DEANNA Co-signed By: VALENTINE Sodium Chloride (Nss) 500 mls @ 999 mls/hr IV .Q31M STA Stop: 09/02/24 11:24 Last Infusion: 09/02/24 12:23 Dose: Infused Documented By: Admin: 09/02/24 11:25 Dose: 999 mls/hr Documented By: VALENTINE Metoprolol Tartrate (Metoprolol Tartrate 1 Mg/Ml Vial) 5 mg IV NOW STA Stop: 09/02/24 12:59 Last Admin: 09/02/24 13:33 Dose: 5 mg Documented By: DEANNA Miscellaneous (Stat Iv Infusion Titration Per Protocol) 1 each N/A NOW STA Stop: 09/02/24 12:59 Last Admin: 09/02/24 14:15 Dose: Not Given Documented By: DEANNA Imaging Data Radiologist's Impression: Chest X-Ray 09/02/24 10:54 XR chest 1V portable CLINICAL HISTORY: Dysrhythmia TECHNIQUE: Single frontal radiograph of the chest was obtained. Comparison: Comparison is made to chest radiograph 07/15/2024 FINDINGS: No lines and tubes are seen. Cardiomegaly is noted. Right perihilar density is seen. The lungs are clear. No evidence of pleural effusion or pneumothorax. IMPRESSION: Right perihilar density may represent prominent pulmonary nodule versus lymphadenopathy. If there is clinical concern, CT can be performed. ACT 112: Negative or not required by law. Electronically signed by: Nicolas Cartwright M.D. 09/02/2024 11:14 AM Discharge Plan Visit Data Chief Complaint: Cardiac Assessment Stated Complaint: ABN EKG ED Provider: Curtis Hagan Discharge Problem: Atrial fibrillation with rapid ventricular response Forms Stand Alone Forms: [facility] Prescriptions Prescriptions: No Action meclizine 25 mg tablet 25 mg PO TID PRN (Reason: dizziness) Qty: 20 3RF amlodipine-olmesartan 10-40 mg tablet 1 tab PO DAILY Qty: 100 3RF (DME) lancets 33 gauge misc See Rx Instructions .Route Qty: 100 3RF Rx Instructions: As directed clonidine HCl 0.1 mg tablet 0.1 mg PO DAILY PRN (Reason: Hypertension) Qty: 30 0RF Rx Instructions: use for SBP > 160 metformin 1,000 mg tablet 1,000 mg PO BID Qty: 180 1RF (DME) OneTouch Verio test strips Strip See Rx Instructions .Route Qty: 100 3RF Rx Instructions: As directed (DME) blood-glucose meter Misc See Rx Instructions .Route Qty: 1 0RF Rx Instructions: As directed albuterol sulfate 90 mcg/actuation HFA aerosol inhaler 1 inh inhalation QID PRN (Reason: shortness of breath or wheezing) Qty: 6.7 1RF vitamin A 2,400 mcg capsule 2,400 mcg PO DAILY biotin 10,000 mcg capsule 10,000 mcg PO DAILY furosemide [Lasix] 20 mg tablet 20 mg PO DAILY PRN (Reason: edema) Qty: 30 2RF famotidine 20 mg tablet 20 mg PO BID Qty: 60 5RF coenzyme Q10 [CoQ-10] 100 mg Capsule 100 mg PO QAM [place]-3 Fish Oil 300-1,000 mg Capsule 1 cap PO DAILY Glucosamine Chondroitin 550-30-1 mg Capsule 1 cap PO DAILY pantoprazole 40 mg tablet,delayed release (DR/EC) 40 mg PO BID Rx Instructions: Take 1 tablet by mouth twice daily cholecalciferol (vitamin D3) 1,250 mcg (50,000 unit) capsule 50,000 unit PO WK Rx Instructions: TUESDAYS magnesium chloride [Mag 64] 64 mg tablet,delayed release (DR/EC) 64 mg PO HS Referrals Referrals: Pro,El Werner MD [Primary Care Provider] -
[2024-09-02] MEDS: dilTIAZem HCl 5 MG/ML 5 ML VIAL IV STA (11:30)
[2024-09-02 11:33] LABS: Albumin Globulin Ratio 1.3 (0.9-2); Albumin Level 4.2 gm/dl (3.4-5.0); BUN Creatinine Ratio 21.1 (10-20); Bilirubin,Total 0.9 mg/dl (0.2-1.0); Calcium 9.7 mg/dl (8.6-10.3); Creatinine Clr Calc Pharmacy 76.6 ml/min; Globulin 3.2 gm/dl (2.5-4.0); Magnesium 1.7 mg/dl (1.7-2.4); Potassium 4.4 mmol/L (3.5-5.1); Total Protein 7.4 gm/dl (6.0-8.3)
[2024-09-02 11:39] LABS: Troponin I High Sensitivity 8.6 pg/ml (0-14)
[2024-09-02 11:44] LABS: Prothrombin Time 11.3 Seconds (9.0-12.0)
[2024-09-02 11:48] LABS: Thyroid Stimulating Hormone 3.405 uIu/ml (0.300-4.500)
[2024-09-02] MEDS: METOPROLOL TARTRATE 1 MG/ML VIAL IV STA (13:33)
[2024-09-02] MEDS: dilTIAZem HCL 125 MG in DEXTROSE 5% 100 ML IV SCH (13:34)
[2024-09-02] MEDS: STAT IV Infusion **Titration per Protocol STA (14:15)
--- NOTE | 2024-09-02 14:21 | Electrocardiogram Report ---
Test Reason : Blood Pressure : */* mmHG Vent. Rate : 114 BPM Atrial Rate : * BPM P-R Int : * ms QRS Dur : 78 ms QT Int : 316 ms P-R-T Axes : * 25 130 degrees QTcB Int : 435 ms Poor data quality, interpretation may be adversely affected Atrial fibrillation with rapid ventricular response Low voltage QRS Old Anteroseptal infarct (cited on or before 24-Feb-2018) Nonspecific T wave abnormality Lateral leads Abnormal ECG When compared with ECG of 16-Jul-2024 11:15, Atrial fibrillation has replaced Sinus rhythm Vent. rate has increased by 55 bpm T-wave inversion in Anterolateral leads no longer present Confirmed by Alexis Armstrong ([id number]) on 09/02/2024 2:21:14 PM Referred By: REFERRED SELF Confirmed By: Alexis Armstrong
[2024-09-02 14:26] LABS: Basophils # (auto) 0.04 K/uL (0.00-0.20); Basophils % (auto) 0.6 %; Eosinophils # (auto) 0.11 K/uL (0.00-0.50); Eosinophils % (auto) 1.5 %; Hematocrit (blood only) 39.2 % (37.0-47.0); Hemoglobin 13.1 g/dl (12.0-16.0); Immature Granulocytes # (auto) 0.01 K/uL (0.01-0.20); Immature Granulocytes % (auto) 0.1 %; Lymphocytes # (auto) 2.35 K/uL (1.20-3.40); Lymphocytes % (auto) 32.8 %; Mean Corpuscular Hemoglobin 28.5 pg (25.0-34.0); Mean Corpuscular Hgb Conc 33.4 g/dL (32.0-36.0); Mean Corpuscular Volume 85.4 fL (80.0-100.0); Mean Platelet Volume 11.2 fL (9.4-12.4); Monocytes # (auto) 0.48 K/uL (0.11-0.59); Monocytes % (auto) 6.7 %; Neutrophils # (auto) 4.17 K/uL (1.40-6.50); Neutrophils % (auto) 58.3 %; Platelet Count 239 K/uL (130-400); RDW Coefficient of Variation 14.4 % (11.5-14.5); RDW Standard Deviation 44.5 fL (36.4-46.3); Red Blood Count 4.59 M/uL (4.20-5.40); White Blood Count 7.16 K/ul (4.8-10.8)
--- NOTE | 2024-09-02 14:59 | History & Physical Report ---
Date of Service September 02, 2024 Assessment & Plan (1) Atrial fibrillation with RVR: Plan: TTE TSH WNL Continue IV diltiazem for rate control, transition to metoprolol 25mg PO q6h and wean diltiazem drip as able [id number] - start anticoagulation with Eliquis 5mg PO BID (2) Abnormal CXR: Plan: Given ongoing cough and shortness of breath will get CT chest to investigate this further Plan VTE Prophylaxis - Eliquis Diet - T2DM Disposition - admit to PCU Admission and Anticipated Discharge Date Admission Date: September 02, 2024 History of Present Illness Chief Complaint: Tachycardia with atrial fibrillation on outpatient EKG Primary Care Provider: El Hernández MD Cynthia Lawrence is a 74 year old female who presents to the ER with tachycardia at her outpatient GI appointment and subsequent EKG showing atrial fibrillation with rapid ventricular rate therefore sent to the ER for further treatment. History taking is limited due to requiring a electric arc furnace operator. Patient is Moz[place]ican speaking and history taken with aid of live (iPad) electric arc furnace operator - Sergio. Her main concern has been her blood pressure recently and she reports taking her amlodipine/olmesartan when ever her BP is below 160 but skips this and just takes the clonidine when her BP is over 160 (I suspect this was an error in communication and she should have been taking the amlodipine/olmesartan daily with addition of clonidine PRN). She also reports ongoing problems with acidity for which she takes pantoprazole regularly and famotidine as needed. She has noticed her heart rate increased possibly for the last month. No chest pain, shortness of breath, claudication, presyncope or syncope. She was recently hospitalized from July 15 - July 19 due to chest pains with elevated troponin and suspected to have NSTEMI however subsequent cardiac catheterization showed no significant coronary artery disease. She was therefore diagnosed and treated for bronchitis. She notes her cough has been ongoing since this time. Famotidine was added at that time for GERD. Allergies Allergy/AdvReac Type Severity Reaction Status Date / Time procaine Allergy Unknown PER PT Verified 09/02/24 08:48 "TOLD NEVER TO TAKE NOVOCAIN" Home Medications Medication Instructions Recorded Confirmed Type coenzyme Q10 100 mg capsule 100 mg PO QAM 07/02/21 09/02/24 History (CoQ-10) vitamin A 2,400 mcg capsule 2,400 mcg PO DAILY 10/21/22 09/02/24 History biotin 10,000 mcg capsule 10,000 mcg PO DAILY 02/26/23 09/02/24 History omega-3s 300 bj-wns-mah-other 1 cap PO DAILY 03/19/23 09/02/24 History [id number] oil 1,000 mg capsule ([place]-3 Fish Oil) meclizine 25 mg tablet 25 mg PO TID PRN dizziness #20 tabs 08/04/23 09/02/24 Rx furosemide 20 mg tablet (Lasix) 20 mg PO DAILY PRN edema #30 tabs 10/28/23 09/02/24 Rx amlodipine 10 mg-olmesartan 40 mg 1 tab PO DAILY #100 tabs 12/02/23 09/02/24 Rx tablet lancets 33 gauge #100 ea 01/23/24 09/02/24 Rx clonidine HCl 0.1 mg tablet 0.1 mg PO DAILY PRN Hypertension 02/26/24 09/02/24 Rx #30 tabs metformin 1,000 mg tablet 1,000 mg PO BID #180 tabs 04/30/24 09/02/24 Rx blood sugar diagnostic (OneTouch #100 ea 05/31/24 09/02/24 Rx Verio test strips) blood-glucose meter #1 ea 05/31/24 09/02/24 Rx albuterol sulfate 90 mcg/actuation 1 inh inhalation QID PRN shortness 07/14/24 09/02/24 Rx aerosol inhaler of breath or wheezing #6.7 grams cholecalciferol (vitamin D3) 1,250 50,000 unit PO WK 07/15/24 09/02/24 History mcg (50,000 unit) capsule glucosamine sulf dipot 1 cap PO DAILY 07/15/24 09/02/24 History chlr,msm,chond 550 mg-C 30 mg-matt 1 mg capsule (Glucosamine Chondroitin) magnesium chloride 64 mg 64 mg PO HS 07/15/24 09/02/24 History (magnesium chloride) tablet,delayed release (Mag 64) pantoprazole 40 mg tablet,delayed 40 mg PO BID 07/15/24 09/02/24 History release famotidine 20 mg tablet 20 mg PO BID #60 tabs 08/09/24 09/02/24 Rx Past Med/Surg History Problem List (Updated 09/03/24 @ 06:28 by Ward Pierre MD) Abnormal CXR Atrial fibrillation with RVR Tachycardia Cough Bilateral sciatica Lumbar radiculopathy Lower back pain Mild cognitive impairment with memory loss Vitamin D deficiency Left knee pain Hypomagnesemia Early satiety Current use of proton pump inhibitor Constipation GERD (gastroesophageal reflux disease) Leg cramps Recent skin changes Acute back pain Gastritis Abdominal pain Encounter for pre-operative examination Leg edema, left (Acute) Mixed incontinence urge and stress (Acute) Lumbar spinal stenosis (Acute) Hypothyroidism (Acute) pt denies Itching History of memory loss Flank pain Right-sided chest wall pain Right upper quadrant abdominal pain History of COVID-19 (Acute) diagnosed 03/2021--no issues now Mild cognitive impairment (Chronic) Diabetic peripheral neuropathy associated with type 2 diabetes mellitus ( Chronic) Anxiety disorder (Acute) Polyneuropathy (Acute) Depression (Chronic) Asthma (Chronic) inhaler prn Medical History SOB (shortness of breath) Non-ST elevation MS (NSTEMI) Chest pain Hyperlipidemia Hypertension Osteoarthritis Diabetes mellitus, type 2 Surgical History Status post hardware removal History of open reduction and internal fixation (ORIF) procedure History of colonoscopy History of left cataract extraction History of total abdominal hysterectomy and bilateral salpingo-oophorectomy History of appendectomy Family History Mother Breast cancer Unknown Breast cancer Father Prostate cancer Other No family history of adverse response to anesthesia Denies family history of Ovarian cancer Myocardial infarction Colorectal cancer Social History Smoking Status: Never smoker Second Hand Exposure: No; Do You Dip or Chew Tobacco: No; Tobacco Cessation Education Requested by Patient: No Hx Alcohol Use: No Hx Substance Use: No Preferred Language: Moz[place]ican Communication Ability: Effective Communication Ability Comment: will need an oil lease operator Communication Tools: IPad Visual Impairment: No Limitations Hearing Ability: Normal Mice Raiser Required: Yes and Voice Beliefs That Will Affect Care: None marital status: / Current Living Situation: Alone Current Living Situation Comment: daughter reports living 3 mins away current occupational status: retired Other Information That Helps Us Care for You: No Feels Safe at Home: Yes Safety Concerns: Feels Safe At This Time Childhood Exposure to Second-Hand Smoke: No Dental Care, Regularly: Yes Physical Activity Frequency: Does not Exercise Seatbelt Use: always Sunscreen Use: No Assistive Devices: None, Denture - Upper, Denture - Lower and Glasses Review of Systems Review of Systems: All systems reviewed & are unremarkable except as noted in HPI & below Physical Exam Constitutional: WD/WN, vitals as above Eyes: + anicteric sclerae; normal pupil size ENMT: external ear and nose normal, oropharynx normal Respiratory: normal respiratory effort, lungs clear to auscultation Cardiovascular: Rate/Rhythm: + tachycardic and + irregularly irregular Heart Sounds: no murmur Extremities: normal capillary refill; no calf tenderness and no pedal edema Gastrointestinal (Abdomen): normal bowel sounds, soft, nontender, no hepatosplenomegaly Musculoskeletal: no cyanosis or clubbing, extremities motor strength 5/5 Skin: no rashes, warm and dry Neurologic: moves all extremities and awake; not confused Psychiatric: A+Ox3, euthymic affect Genitourinary: no CVA tenderness Results & Data Results & Data Vital Signs (Past 12 Hours) Vital Signs Temp Pulse Pulse Resp BP BP Pulse Ox 09/02/24 14:15 89 20 175/132 H 97 09/02/24 14:15 86 146/95 H 09/02/24 14:00 86 19 146/95 H 97 09/02/24 14:00 98 H 17 146/95 H 95 09/02/24 13:47 93 H 22 167/122 H 97 09/02/24 13:33 111 H 145/111 H 09/02/24 13:16 112 H 18 161/134 H 97 09/02/24 13:15 98 H 18 161/134 H 97 09/02/24 12:31 103 H 16 161/97 H 96 09/02/24 12:21 102 H 09/02/24 11:30 116 H 22 165/122 H 97 09/02/24 11:00 125 H 22 163/125 H 95 09/02/24 10:41 09/02/24 10:26 36.4 C L 133 H 20 222/117 H 96 O2 Del Method 09/02/24 14:15 09/02/24 14:15 09/02/24 14:00 09/02/24 14:00 09/02/24 13:47 09/02/24 13:33 09/02/24 13:16 09/02/24 13:15 Room Air 09/02/24 12:31 09/02/24 12:21 09/02/24 11:30 09/02/24 11:00 09/02/24 10:41 Room Air 09/02/24 10:26 Laboratory Results Abnormal lab results 09/02/24 Range/Units 11:00 BUN/Creatinine Ratio 21.1 H (10-20) Glucose 133 H (70-99(Fasting)) mg/dl Diagnostic Findings XR chest 1V portable CLINICAL HISTORY: Dysrhythmia TECHNIQUE: Single frontal radiograph of the chest was obtained. Comparison: Comparison is made to chest radiograph 07/15/2024 FINDINGS: No lines and tubes are seen. Cardiomegaly is noted. Right perihilar density is seen. The lungs are clear. No evidence of pleural effusion or pneumothorax. IMPRESSION: Right perihilar density may represent prominent pulmonary nodule versus lymp hadenopathy. If there is clinical concern, CT can be performed. Medications Administered ER Medications Given: Normal saline 500ml bolus Diltiazem 15mg IV Metoprolol 5mg IV Diltiazem @ 5mg/hr ECG Rate (beats per minute): 114 Rhythm: atrial fibrillation Findings: no acute ischemic change Comparison ECG Date: from (July 16, 2024) Change: the following changes noted (Atrial fibrillation is replaced sinus rhythm) Code Status & VTE Plan Code Status Full VTE Prophylaxis Plan VTE Prophylaxis will be ordered: Yes PG Care Time/CCT Total # of Minutes Spent Total Time Spent: 85 Total Time Spent with Patient: Total time spent is greater than 50% in coordination of care (as documented) at patient's floor/unit and/or counseling patient: Coding Level of Care Code 67643 INT INP/OBS CARE 3/75MIN Diagnoses Atrial fibrillation with RVR I48.91 Abnormal CXR R93.89
[2024-09-02] MEDS: MAGNESIUM SULFATE / D5W 1 GM/100 ML BAG IV STA (15:53)
[2024-09-02] MEDS ORDERED: ACETAMINOPHEN 325 MG TAB PO PRN (16:09)
[2024-09-02] MEDS: OPTIRAY 320 100ml IV ONE (16:52)
[2024-09-02] MEDS: LOSARTAN POTASSIUM 50 MG TAB PO STA (17:03)
--- NOTE | 2024-09-02 17:44 | CT Scan Report ---
CT chest diagnostic w con CLINICAL HISTORY: continued shortness of breath, cough, abnormal CXR TECHNIQUE: Multidetector row helical CT of the chest was performed with intravenous contrast. Coronal and sagittal reformations were obtained. Automated dose lowering techniques and/or adjustment accord ing to patient size were utilized for this exam. CT DOSE: 826.49 mGy.cm Comparison: Comparison is made to CT chest 09/08/2007 FINDINGS: Lungs and pleura: There is a 6 mm nodule in the lingula (series 4 image 135). Heart and pericardium: Cardiomegaly is seen with biatrial enlargement. Vessels: Moderate atherosclerotic changes in the aorta and coronary arteries. Pulmonary trunk measure s 35 mm in diameter. Mediastinum and mono: Subcentimeter lymph nodes are seen. Chest wall and lower neck: Unremarkable. Abdomen: Hepatic steatosis is noted. Bones: Degenerative changes in the thoracic spine. IMPRESSION: 1. No acute abnormalities are seen. 2. Mild pulmonary hypertension. 3. 6 mm nodule in the lingula. According to Fleischner criteria, CT chest should be performed at 6-1 2 months. In high-risk patients, a 18-24 month follow-up is recommended, in low-risk patients, this 1 8-24 month follow-up CT is optional. ACT 112: Negative or not required by law. Electronically signed by: Nicolas Cartwright M.D. 09/02/2024 5:41 PM
[2024-09-02] MEDS: FAMOTIDINE 20 MG TAB PO STA (17:55)
[2024-09-02] MEDS: METOPROLOL TARTRATE 25 MG TAB PO STA (17:55)
[2024-09-02] MEDS: PANTOprazole 40 MG TAB PO STA (17:56)
[2024-09-02] MEDS ORDERED: FAMOTIDINE 20 MG TAB PO PRN (21:57)
[2024-09-02] MEDS ORDERED: GLUCOSE 40% GEL 15 GM TUBE PO PRN (22:00)
[2024-09-02] MEDS ORDERED: DEXTROSE 50% 50 ML SYRINGE IV PRN (22:00)
[2024-09-02] MEDS ORDERED: CARBOHYDRATES FOR HYPOGLYCEMIA PO PRN (22:00)
[2024-09-02] MEDS ORDERED: GLUCAGON FOR INJ 1 MG VIAL SQ PRN (22:00)
[2024-09-02] MEDS ORDERED: GLUCOSE 10 TAB/TUBE PO PRN (22:00)
[2024-09-02] MEDS: APIXABAN 5 MG TABLET PO SCH (22:54)
[2024-09-02] MEDS: METOPROLOL TARTRATE 25 MG TAB PO SCH (22:55)
[2024-09-03] MEDS: ALBUTEROL HFA 8 GM INHALER INH PRN (06:38)
[2024-09-03 07:35] VITALS: RESP 20; TEMP 97.9; O2SAT 93
[2024-09-03] MEDS ORDERED: NON-FORMULARY MEDICATION (Amlodipine-Olmesartan 10-40 mg tablet) PO SCH (09:00)
[2024-09-03] MEDS: INSULIN ASPART PER UNIT CHARGE SC SCH (09:02)
[2024-09-03] MEDS: PANTOprazole 40 MG TAB PO SCH (09:09)
[2024-09-03] MEDS: METOPROLOL SUCC 25MG EXT REL TAB PO STA (09:09)
[2024-09-03] MEDS: LOSARTAN POTASSIUM 50 MG TAB PO SCH (09:09)
[2024-09-03] MEDS: amLODIPine BESYLATE 5 MG TAB PO SCH (09:10)
--- NOTE | 2024-09-03 10:36 | Electrocardiogram Report ---
Test Reason : Blood Pressure : */* mmHG Vent. Rate : 80 BPM Atrial Rate : 129 BPM P-R Int : * ms QRS Dur : 80 ms QT Int : 412 ms P-R-T Axes : * 41 108 degrees QTcB Int : 475 ms Atrial fibrillation Old Septal infarct (cited on or before 24-Feb-2018) Abnormal ECG When compared with ECG of 02-Sep-2024 10:41, HR has decreased by 34 bpm Otherwise no significant change Confirmed by Alexis Armstrong ([id number]) on 09/03/2024 10:35:56 AM Referred By: REFERRED SELF Confirmed By: Alexis Armstrong
[2024-09-03 11:56] VITALS: BP 147/92; PULSE 83
--- NOTE | 2024-09-03 12:36 | XCELERA ---
[id number]
--- NOTE | 2024-09-03 16:43 | Discharge Summary ---
Discharge Summary Date of Service September 03, 2024 Principal Dx & Hospital Course #1 = Principal Diagnosis (1) Atrial fibrillation with RVR: 74 y/o with HTN, DM admitted with new onset atrial fibrillation with rapid ventricular rate She was recently admitted with dyspnea, chest discomfort and nstemi. TTE 07/16 was remarkable for EF 55-60%, severe hypokinesis of distal septum and small area at apex. She underwent cardiac catheterization but did not have any Significant CAD. she was not in atrial fibrillation during that admission. HR was controlled with diltiazem drip overnight and transitioned to oral metoprolol. She had excellent rate control with this. Severe hypertension was well controlled with her usual medications amlodipine, olmesartan, and addition of metoprolol. TTE on 09/03 notable for mild decline in LV systolic function EF 45-50% but previously noted wma's have resolved. mild global hypokinesis of LV noted TSH was normal. [id number] - anticoagulation for stroke risk reduction indicated It is conceivable that some of her ongoing chest symptoms and previously elevated troponin could be related to episodes of afib. Plan to continue metprolol succinate 50 mg bid and apixaban and arranged follow up in cardiology clinic. I discussed the risks and benefits of therapeutic anticoagulation with the patient including the risks of gastrointestinal hemorrhage and intracranial hemorrhage which can be life-threatening disabling or fatal. I also discussed the warning signs of these complications and when to seek medical attention. medications and plan of care was also discussed with her [id number] who is at the bedside (2) Pulmonary nodule: Has had ongoing cough and shortness of breath so chest CT was obtained. This was remarkable only for 6 mm pulmonary nodule in the lingula She is low risk for lung cancer so recommended follow up is to consider repeat chest CT in 18 to 24 months. I discussed this recommendation with her. She reports a longstanding pulmonary nodule related to childhood pneumonia. Follow up in primary care Plan T2DM, resume metformin HTN - as above Admission HPI Per Admitting Provider Cynthia Lawrence is a 74 year old female who presents to the ER with tachycardia at her outpatient GI appointment and subsequent EKG showing atrial fibrillation with rapid ventricular rate therefore sent to the ER for further treatment. History taking is limited due to requiring a exhibit builder. Patient is [place]er speaking and history taken with aid of live (iPad) exhibit builder - Sergio. Her main concern has been her blood pressure recently and she reports taking her amlodipine/olmesartan when ever her BP is below 160 but skips this and just takes the clonidine when her BP is over 160 (I suspect this was an error in communication and she should have been taking the amlodipine/olmesartan daily with addition of clonidine PRN). She also reports ongoing problems with acidity for which she takes pantoprazole regularly and famotidine as needed. She has noticed her heart rate increased possibly for the last month. No chest pain, shortness of breath, claudication, presyncope or syncope. She was recently hospitalized from July 15 - July 19 due to chest pains with elevated troponin and suspected to have NSTEMI however subsequent cardiac catheterization showed no significant coronary artery disease. She was therefore diagnosed and treated for bronchitis. She notes her cough has been ongoing since this time. Famotidine was added at that time for GERD. Discharge Exam PHYSICAL EXAMINATION Last 24h vital signs reviewed, see documentation in flowsheet General: comfortable appearing, no distress, sitting on edge of bed HEENT: Normocephalic, atraumatic, pupils round and equal, sclerae anicteric, no conjunctival injection, moist mucus membranes Lungs: Normal respiratory effort. Clear to auscultation bilaterally. No RRW Heart: irregularly irregular, no murmurs. No JVD Abdomen: Soft, nontender, nondistended. Bowel sounds present. Extremities: Warm, dry, well-perfused. No extremity edema. Neuro: Alert and oriented x 4, face symmetric, moves 4 extremities well Psych: Normal affect and behavior Discharge Plan Discharge Items Patient Disposition: Home - Self-Care Reason For Visit: A. FIB RVR Discharge Diagnosis: Atrial fibrillation with rapid ventricular rate Activity: Resume your previous activity Non-emergency contact: Primary Care Provider and [place] Call non-emergency contact if: you have any medication questions and your symptoms worsen Follow-up/Referrals: El Hernádnez MD [Primary Care Provider] - 09/10/24 10:00 am (Hospital follow up scheduled for September 10, 2024 at 10:00 am. ) Marc Howell MD [Physician] - 11/19/24 12:45 pm (Hospital follow up scheduled for November 19, 2024 at 12:[address] Howell's office will call you with a sooner appointment date.) Diet: Carb Consistent or DM2 and Low Sodium (2gm) Addtl Attending Provider Instructions: You have a common heart arrhythmia called atrial fibrillation (irregular heart beat) -it can come and go so its possible you've had it for awhile, but it was not detected on last admission -its possible that it could be contributing to the chest tightness/cough We are using two medications to control it: metoprolol - slows the heart rate. Its ok to be in atrial fibrillation as long as it is not going too fast. We like it to stay <100 beats per minute at rest Eliquis - blood thinner. Atrial fibrillation increases the risk of stroke. Taking a blood thinner significantly reduces the risk of stroke with atrial fibrillation We discussed the risks and benefits of blood thinner, including the risks of gastrointestinal bleeding - seek medical attention if you have black/tarry or bloody stool There is also a very small but real risk of intracranial hemorrhage (bleeding in the head) - related to head trauma or bleeding-type stroke, that can be life threatening. Call 911 if you have altered mental status or symptoms of stroke (weakness or numbness of face/arm/leg, trouble speaking or understanding, trouble with walking/balance Follow up with Dr. Hernández or his colleague, ideally within 1-2 weeks -consider formal sleep apnea testing, though sleep apnea screening was ok during last hospitalization -consider repeat chest CT in 18-24 months for small nodule in L lung I sent referral for cardiology follow up It was a pleasure taking care of you in the hospital, Angelika Baptiste MD Pending Studies at Discharge: No Stand-Alone Forms: My [facility] [employer], Smoking Cessation Medications and DC Order Prescriptions: New Eliquis 5 mg Tablet 5 mg PO BID Qty: 60 0RF metoprolol succinate 50 mg Tablet Extended Release 24 Hr 50 mg PO BID Qty: 60 0RF Continued meclizine 25 mg tablet 25 mg PO TID PRN (Reason: dizziness) Qty: 20 3RF amlodipine-olmesartan 10-40 mg tablet 1 tab PO DAILY Qty: 100 3RF (DME) lancets 33 gauge misc See Rx Instructions .Route Qty: 100 3RF Rx Instructions: As directed clonidine HCl 0.1 mg tablet 0.1 mg PO DAILY PRN (Reason: Hypertension) Qty: 30 0RF Rx Instructions: use for SBP > 160 metformin 1,000 mg tablet 1,000 mg PO BID Qty: 180 1RF (DME) OneTouch Verio test strips Strip See Rx Instructions .Route Qty: 100 3RF Rx Instructions: As directed (DME) blood-glucose meter Misc See Rx Instructions .Route Qty: 1 0RF Rx Instructions: As directed albuterol sulfate 90 mcg/actuation HFA aerosol inhaler 1 inh inhalation QID PRN (Reason: shortness of breath or wheezing) Qty: 6.7 1RF vitamin A 2,400 mcg capsule 2,400 mcg PO DAILY biotin 10,000 mcg capsule 10,000 mcg PO DAILY furosemide [Lasix] 20 mg tablet 20 mg PO DAILY PRN (Reason: edema) Qty: 30 2RF famotidine 20 mg tablet 20 mg PO BID Qty: 60 5RF coenzyme Q10 [CoQ-10] 100 mg Capsule 100 mg PO QAM [place]-3 Fish Oil 300-1,000 mg Capsule 1 cap PO DAILY Glucosamine Chondroitin 550-30-1 mg Capsule 1 cap PO DAILY pantoprazole 40 mg tablet,delayed release (DR/EC) 40 mg PO BID Rx Instructions: Take 1 tablet by mouth twice daily cholecalciferol (vitamin D3) 1,250 mcg (50,000 unit) capsule 50,000 unit PO WK Rx Instructions: TUESDAYS magnesium chloride [Mag 64] 64 mg tablet,delayed release (DR/EC) 64 mg PO HS Discharge Orders: Discharge Order (Routine); Ordered 09/03/24 Ordered By: Angelika Baptiste Admission Data Admit Date/Time: 09/02/24 14:47 Attending Provider: Angelika Baptiste Admit Provider: Ward Pierre Primary Care Provider: El Hernández Other Providers: Ward Pierre Other Interventions: Discharge Summary Assessment (RN) Last Done: 09/03/24 13:54 Hospital Stay Data Consultations 09/02/24 13:33 ED Decision to Admit Stat Diagnostic Imagining Performed 09/02/24 15:45 CT chest diagnostic w con Routine Pending Results Patient Have Any Pending Studies at Discharge: No Discharge Instructions Given to Patient (Per Discharging Provider) You have a common heart arrhythmia called atrial fibrillation (irregular heart beat) -it can come and go so its possible you've had it for awhile, but it was not detected on last admission -its possible that it could be contributing to the chest tightness/cough We are using two medications to control it: metoprolol - slows the heart rate. Its ok to be in atrial fibrillation as long as it is not going too fast. We like it to stay <100 beats per minute at rest Eliquis - blood thinner. Atrial fibrillation increases the risk of stroke. Taking a blood thinner significantly reduces the risk of stroke with atrial fibrillation We discussed the risks and benefits of blood thinner, including the risks of gastrointestinal bleeding - seek medical attention if you have black/tarry or bloody stool There is also a very small but real risk of intracranial hemorrhage (bleeding in the head) - related to head trauma or bleeding-type stroke, that can be life threatening. Call 911 if you have altered mental status or symptoms of stroke (weakness or numbness of face/arm/leg, trouble speaking or understanding, trouble with walking/balance Follow up with Dr. Hernández or his colleague, ideally within 1-2 weeks -consider formal sleep apnea testing, though sleep apnea screening was ok during last hospitalization -consider repeat chest CT in 18-24 months for small nodule in L lung I sent referral for cardiology follow up It was a pleasure taking care of you in the hospital, Angelika Baptiste MD Total Time Total Time Spent Total Time Spent (In Minutes): I personally spent: 40 minutes today on clinical care activities including: reviewing chart notes and vital signs, reviewing telemetry monitoring reviewing labs reviewing studies examining and counseling the patient counseling the patient's family writing orders writing prescriptions, discharge instructions documentation Coding Level of Care Code 40810 INP/OBS DISCH >30 MIN Diagnoses Atrial fibrillation with RVR I48.91 Pulmonary nodule R91.1
[2024-09-03] MEDS ORDERED: METOPROLOL SUCC 50MG EXT REL TAB PO SCH (21:00)
[2024-09-03] MEDS ORDERED: MAGNESIUM CHLORIDE W/CALCIUM 64MG DELAYED REL TAB PO SCH (21:00)
== END 2024-09-03 15:21 | disposition home or self-care (01) | DRG 310 ==
LOC: ED 10:23 → 4W 14:47 → SUATTDRO 14:47 → INTOOBSV 14:47 → 4W 15:58